=== PATIENT | male | born 1990 | race Caucasian/White ===

== ENCOUNTER 2024-05-03 08:24 | Outpatient (REF) | payer OTHER, SELFPAY ==
--- NOTE | ~2024-05-03 | US_ITS ---
EXAMINATION: US ABDOMEN COMPLETE CLINICAL INFORMATION: Epigastric pain, abdominal pain. COMPARISON: None available. TECHNIQUE: Real-time imaging of the abdominal viscera. FINDINGS: PANCREAS: Limited visualization of pancreatic tail and head. Imaged portion of pancreatic body is unremarkable. ABDOMINAL AORTA: Limited visualization. INFERIOR VENA CAVA: Visualized portions are normal. LIVER: Increased hepatic parenchymal heterogeneity and echogenicity could be associated with hepatocellular disease/hepatic steatosis and substantially limits visualization. Correlation with liver function tests and clinical exam recommended to determine further management. GALLBLADDER: No gallstones. No gallbladder wall thickening. COMMON BILE DUCT: Normal in caliber measuring 0.23 cm in diameter. RIGHT KIDNEY: No hydronephrosis. No renal calculi. Limited visualization. The kidney measures 10.5 cm in maximum dimension. LEFT KIDNEY: No hydronephrosis. No renal calculi. Limited visualization. The kidney measures 10.3 cm in maximum dimension. SPLEEN: Normal. The spleen measures 10.1 cm in maximum dimension. FREE FLUID: None. US/US abdomen complete IMPRESSION: Increased hepatic parenchymal heterogeneity and echogenicity could be associated with hepatocellular disease/hepatic steatosis and substantially limits visualization. Correlation with liver function tests and clinical exam recommended to determine further management. Electronically signed by: Annita Grady MD 05/08/2024 01:38 PM EDT
== END 2024-05-03 08:25 | disposition home or self-care (01) ==
LOC: HO.US 08:24
PROVIDERS: PCP Internal Medicine; Visit Provider Internal Medicine
DX: R10.13 Epigastric pain (principal)
CPT/HCPCS: 76700

== ENCOUNTER 2024-08-17 07:04 | Day surgery (SDC) | payer OTHER, SELFPAY ==
[2024-08-14 14:50] VITALS: BMI 25.0
--- NOTE | 2024-08-16 09:53 | P.CONAN_ITS ---
Documented by User: Anita Mendosa NP 08/16/24 09:54 HPI - Anesthesia Eval Consult details Narrative: 34yo M for Upper Endoscopy [facility] Past Medical History Medical History GERD (gastroesophageal reflux disease) Surgical History Surgical History No pertinent past surgical history Social History Social History Patient Tobacco Use Status: Never used Tobacco Use of substances other than those prescribed or required for medical reasons: Yes Substance Use Type Other:: 2-3x wk; last smoked 08/16/24 Advance Directives: No Advance Directives Information Provided: Yes Meds Allergies Allergy/AdvReac Type Severity Reaction Status Date / Time No Known Allergies Allergy Verified 08/14/24 14:49 Home Medications ?Medication ?Instructions ?Recorded ?Confirmed ?Last Taken ?Type omeprazole 20 mg capsule,delayed 20 mg PO DAILY 08/14/24 08/14/24 Unknown History release Exam Height,Weight and Vital Signs: Height 5 ft 7 in Weight 72.348 kg Assessment and Plan Assessment Anesthesia Assessment: Chart Reviewed Documented by User: Elizabeth Winter MD 08/17/24 08:10 [facility] Past Medical History Medical History GERD (gastroesophageal reflux disease) Family History Family history of problems with anesthesia: No Surgical History Surgical History No pertinent past surgical history History of Problems with Anesthesia: No Social History Social History Patient Tobacco Use Status: Never used Tobacco Use of substances other than those prescribed or required for medical reasons: Yes Substance Use Type Other:: 2-3x wk; last smoked 08/16/24 Advance Directives: No Advance Directives Information Provided: Yes Meds Allergies Allergy/AdvReac Type Severity Reaction Status Date / Time No Known Allergies Allergy Verified 08/14/24 14:49 Home Medications ?Medication ?Instructions ?Recorded ?Confirmed ?Last Taken ?Type omeprazole 20 mg capsule,delayed 20 mg PO DAILY 08/14/24 08/14/24 Unknown History release Exam Airway Mallampati Class: II TM Dist: >3cm Neck ROM: Full Heart: rrr Lungs: cta Assessment and Plan Assessment Anesthesia Assessment: Anesthesia Plan Discussed Final Anesthetic Review Family History of Problems with Anesthesia: No History of Problems with Anesthesia: No NPO: Yes ASA Class: II Final Preanesthetic Review: No Changes in Pt Med Stat, Meds/Allgs Chart Reviewed, Consent Obtained/Reviewed and Anes Risks/Benef Reviewed Patient Risk: Low Procedure Risk: Low Anesthetic Plan Anesthetic Plan: MAC: Disposition: Standard PACU
[2024-08-17 07:14] VITALS: BMI 25.1
[2024-08-17] MEDS: Lactated Ringers 1,000 ML 100 ML IVCONT (07:33)
[2024-08-17 08:17] VITALS: BP 91/61; PULSE 84; RESP 16; TEMP 36.5
--- NOTE | 2024-08-17 08:27 | P.BOP_ITS ---
Brief Operative Note Date of Service: 08/17/24 Pre-op diagnosis: GERD Post-op diagnosis: other (Erosive esophagitis, Hiatal hernia, Gastritis) Procedure: EGD with biopsies Surgeon: Landon Sharma MD Anesthesia: MAC Was an Public Stenographer used for this Procedure?: No Estimated blood loss (mL): 2.0 Pathology: other (A. Gastric antrum B. Esophagus 34-35cm) Condition: stable Disposition: PACU
[2024-08-17 08:36] VITALS: BP 106/72; PULSE 79; RESP 18; TEMP 36.1; O2SAT 94
--- NOTE | 2024-08-17 10:13 | OP_ITS ---
DATE OF SERVICE: 08/17/2024 SURGEON: Landon Sharma MD INDICATIONS: The patient presents for evaluation of gastroesophageal reflux. Full consent obtained from him for this, including risks of bleeding and perforation. PREOPERATIVE DIAGNOSIS: Gastroesophageal reflux. POSTOPERATIVE DIAGNOSIS: PROCEDURE PERFORMED: Esophagogastroduodenoscopy with biopsies. ESTIMATED BLOOD LOSS: COMPLICATIONS: ANESTHESIA: Medication used: Monitored anesthesia care. ASSISTANTS: SPECIMENS: POSTOPERATIVE DIAGNOSES: Gastroesophageal reflux, erosive esophagitis, hiatal hernia, gastritis. DESCRIPTION OF PROCEDURE: The patient was placed in the left lateral decubitus position. The Olympus video gastroscope was passed in the posterior oropharynx and upper esophagus under direct vision. The scope was passed slowlyto the distal esophagus. The gastroesophageal junction appeared at 35 cm. Extending to 34 cm where areas of erosive esophagitis with some ulcerations and surrounding edema. There was no definitive evidence of De La Vega's mucosa. There was no evidence of any mass, stricture, nor bleeding. The scope entered the stomach. There was a moderate-sized hiatal hernia with normal-appearing hiatal hernia mucosa. The scope was advanced to the pylorus and the duodenum was cannulated to the descending portion. The duodenum including the bulb appeared normal without mass or ulceration. The scope was withdrawn back to the stomach. The gastric antrum had areas of erythema and edema consistent with some gastritis but no erosions nor ulceration. Biopsies were obtained. There was good peristalsis. The scope was retroflexed visualizing the proximal stomach carefully, which appeared normal, without any sign of mass or ulceration. The scope was straightened and withdrawn back to the esophagus. Multiple biopsies were obtained between 34 and 35 cm. Proximal to 34 cm, the esophageal mucosa appeared normal. The scope was withdrawn from the patient. He tolerated the procedure well and was returned to recovery area in stable condition. IMPRESSION: 1. Erosive esophagitis. 2. Hiatal hernia. 3. Gastritis. PLAN: The results of the biopsies will be checked. He had been using omeprazole 20 mg daily up until the past couple of weeks. He did describe that helps his symptoms, although not completely. Based on today's findings, I am going to increase the omeprazole to 40 mg daily and I have advised him to continue that on a daily and regular basis. Given his young age, we may need to consider hiatal hernia surgery at some point. Given today's findings, I will most likely want to repeat anupper endoscopy in the next few months to assess for healing and to be sure there is no underlying De La Vega's esophagus. This will be arranged for him. He was advised to avoid all aspirin and NSAIDs long-term given today's findings as well. MD YOSEF Plunkett/JOHN / [id number] MTDD
== END 2024-08-17 08:55 | disposition home or self-care (01) ==
PROVIDERS: PCP Internal Medicine; Visit Provider Internal Medicine
PROC: 0DJ08ZZ Inspection of Upper Intestinal Tract, Via Natural or Artificial Opening Endoscopic (ICD-10-PCS; CPT 43235; principal; 2024-08-17 08:20)
DX: K22.10 Ulcer of esophagus without bleeding (principal); K29.60 Other gastritis without bleeding; K44.9 Diaphragmatic hernia without obstruction or gangrene; K21.9 Gastro-esophageal reflux disease without esophagitis; R12 Heartburn; Z79.899 Other long term (current) drug therapy
CPT/HCPCS: 43239; 88305; 88313; 88342; J1100; J1596; J2003; J2704

== ENCOUNTER 2024-11-24 19:13 | Emergency (ER) | payer OTHER, SELFPAY ==
--- NOTE | ~2024-11-24 | CT_ITS ---
CLINICAL HISTORY: worst headache of life vomiting CT head without contrast Comparison: None Findings: Cerebellar tonsils terminate at the foramen magnum. Prominence along the posterior superior sagittal sinus, with mildly dense intracranial vasculature may reflect contrast administration, otherwise is nonspecific. No acute intracranial hemorrhage, territorial infarction, midline shift or hydrocephalus. No significant atrophy-like change or white matter disease. Extensive opacification throughout the paranasal sinuses. No significant air-fluid levels or erosive changes. The orbits are within normal limits. There is no acute fracture. IMPRESSION: 1. No acute intracranial findings. This document has been electronically signed by: Roddy Salinas MD on 11/24/2024 20:09:20
--- NOTE | 2024-11-24 19:18 | ED_ITS ---
HPI - General Adult General Chief complaint: Headache Stated complaint: headaches,vomiting,high bp,sweating Time Seen by Provider: 11/24/24 21:24 Source: patient Mode of arrival: ambulatory Limitations: no limitations History of Present Illness ED Provider: HPI narrative: Patient has a migraine headache been having headache since yesterday with dizziness got worse today with nausea and vomiting patient feels slightly different than usual migraine headache blood pressure at home was 160 systolic no history of hypotension on arrival blood pressure was 135/87. Patient is photosensitive no neck pain no fever Related Data Home Medications ?Medication ?Instructions ?Recorded ?Confirmed omeprazole 20 mg capsule,delayed 20 mg PO DAILY 08/14/24 08/14/24 release Previous Rx's ?Medication ?Instructions ?Recorded chdseceopt-nndcergtwzwyj-dxpcmwqv 1 tab PO Q6H PRN haeadace #20 tabs 11/24/24 50 mg-325 mg-40 mg tablet ondansetron 4 mg disintegrating 4 mg PO Q6-8H PRN nausea and 11/24/24 tablet vomiting #7 tabs sumatriptan succinate 50 mg tablet 50 mg PO Q2H PRN migraine headache 11/24/24 (Imitrex) #10 tabs Allergies Allergy/AdvReac Type Severity Reaction Status Date / Time No Known Allergies Allergy Verified 11/24/24 19:28 Review of Systems 2 Review of Systems: Yes all other systems are reviewed and are negative [facility] Past Medical History Medical History GERD (gastroesophageal reflux disease) Surgical History No pertinent past surgical history Social History Social History Patient Tobacco Use Status: Never used Tobacco Smoked in Last 30 Days: No Use of substances other than those prescribed or required for medical reasons: No Advance Directives: No Advance Directives Information Provided: No Physical Exam ED Vital Signs: Vital Signs - 24 hr 11/24/24 19:26 11/24/24 19:54 11/24/24 21:45 Temperature 98.1 F 97.9 F Pulse Rate 79 62 71 Respiratory Rate 20 10 L 9 L Blood Pressure 135/87 119/78 99/70 Pulse Oximetry 100 100 100 Oxygen Delivery Method Room Air Room Air Room Air 11/24/24 22:12 11/24/24 23:09 Temperature 97.7 F Pulse Rate 63 57 Respiratory Rate 10 L 14 Blood Pressure 116/70 97/60 Pulse Oximetry 100 98 Oxygen Delivery Method Room Air Room Air BMI result Body Mass Index 24.3 Appearance: Alert. Oriented X3. Moderate headache Eyes: PERRLA, No Nystagmus photosensitive ENT: Pharynx normal. Oral Mucosa moist temporal artery nontender Neck: Normal inspection. Neck supple. CVS: Normal heart rate and rhythm. Pulses normal. Respiratory: No respiratory distress. Equal air entry bilateral, no wheezing/rales/rhonchi Abdomen: Soft and nontender. Bowel sounds are present, no mass palpable, no CVA tenderness Skin: Skin warm and dry. Normal skin color. Normal skin turgor. Extremities: No lower extremity edema. No calf tenderness Neuro: Oriented X 3. No motor deficit. No sensory deficit.No cerebellar signs , cranial nerves II-XII intact Course Course Course Narrative: This is a rapid medical exam performed by Vidhi Carranza NP: Additional HPI, ROS, PE not included below will be deferred to primary provider. 11/24/24 19:19 Patient is a 34-year-old male presenting with complaint of worst headache of my life, which started today, actively vomiting in triage. States he had to leave work early yesterday for lightheadedness/dizziness, and shortness of breath. Plan: wire charger notified and patient brought directly back to main ED, labs, viral panel, and CT head ordered. Medications Administered Discontinued Medications Generic Name Dose Route Start Last Admin Trade Name Freq PRN Reason Stop Dose Admin Sodium Chloride 1,000 mls @ 999 mls/hr 11/24/24 21:59 11/24/24 23:08 Ns IV 11/24/24 22:59 Infused .Q1H1M ONE Infusion Ketorolac Tromethamine 30 mg 11/24/24 21:59 11/24/24 22:06 Ketorolac Tromethamine 30 Mg/Ml Vial IVPUSH 11/24/24 22:00 30 mg ONCE ONE Administration Ondansetron HCl 4 mg 11/24/24 21:59 11/24/24 22:06 Ondansetron Hcl 4 Mg/2 Ml Vial IVPUSH 11/24/24 22:00 4 mg ONCE ONE Administration Sumatriptan Succinate 6 mg 11/24/24 21:59 11/24/24 22:07 Sumatriptan Succinate 6 Mg/0.5 Ml Vial SUBCUT 11/24/24 22:00 6 mg ONCE ONE Administration Medical Decision Making Medical Decision Making [facility] Narrative: Patient clinically with a migraine headache responded to Imitrex Toradol and nausea medication patient is feeling much better at this time will discharge patient home Differential Diagnosis Differential Diagnoses: The differential diagnosis associated with the presentation includes Migraine headache/sinusitis/subarachnoid bleed Lab Data [facility] Lab Attestation statement: I reviewed the patient's lab results. 11/24/24 19:32 11/24/24 19:32 Labs: Lab Results 11/24/24 Range/Units 19:32 WBC 10.9 H (4.8-10.8) X10*3/uL RBC 5.66 (4.60-5.80) X10*6/uL Hgb 17.1 (14.0-18.0) g/dl Hct 47.7 (42.0-52.0) % MCV 84.3 (80.0-98.0) fL MCH 30.2 (27.0-33.0) pg MCHC 35.8 (31.0-36.0) g/dl RDW 12.2 (11.0-16.0) % Plt Count 246 (160-400) X10*3/uL MPV 9.5 (9.4-12.4) fL Immature Gran % (Auto) 0.3 (0.0-0.4) % Neut % (Auto) 53.2 (45-73) % Lymph % (Auto) 36.2 (20-40) % Pendleton % (Auto) 4.8 (2-11) % Eos % (Auto) 5.0 H (0-4) % Baso % (Auto) 0.5 (0-2) % Lymph # (Auto) 4.0 (1.2-4.9) X10*3/uL [place] # (Auto) 0.5 (0.1-1.2) X10*3/uL Eos # (Auto) 0.6 H (0.0-0.4) X10*3/uL Baso # (Auto) 0.1 (0.0-0.2) X10*3/uL Abs Immat Gran (auto) 0.03 (0.00-0.03) X10*3/uL Absolute Neuts (auto) 5.8 (2.0-8.3) x10*3/uL Absolute Nucleated RBC 0.000 (0.0-0.012) X10*3/uL Nucleated RBC % (auto) 0.0 (0.0-0.2) /100WBC Sodium 143 (135-145) mmol/L Potassium 3.2 L (3.3-5.1) mmol/L Chloride 107 (96-108) mmol/L Carbon Dioxide 23 (22-29) mmol/L Anion Gap 16 (12-20) BUN 18 H (9-16) mg/dL Creatinine 1.09 (0.5-1.4) mg/dL Estim Creat Clear Calc 88.4 Estimated GFR > 60 Random Glucose 107 (60-115) mg/dL Calcium 9.3 (8.4-10.2) mg/dL Total Bilirubin 0.6 (0.0-1.0) mg/dL AST 30 (5-37) U/L ALT 48 H (0-40) U/L Alkaline Phosphatase 67 (39-117) U/L Total Protein 7.3 (6.5-8.0) g/dL Albumin 4.7 (3.5-5.0) g/dL Influenza Type A (PCR) NEGATIVE (Negative) Influenza Type B (PCR) NEGATIVE (Negative) RSV RNA Qual (PCR) NEGATIVE (Negative) SARS-CoV-2 RNA (RT-PCR) NEGATIVE (Negative) Radiology Impression Discussion of test interpretation with radiology: I have reviewed the radiologist's reading. Radiologist Impression: NAD Discharge Plan Discharge Clinical Impression: Migraine Patient Disposition: Home, Self-Care Instructions: Migraine Headache (ED) Additional Instructions: Drink plenty of fluids Take Imitrex 1 tablet at onset of headache may repeat in 2 hours if headache worsens maximum 2 tablets in 24 hours Fioricet 1 tablet every 6 hours as needed Medicine for nausea as prescribed Follow with your PCP Prescriptions: New sumatriptan succinate [Imitrex] 50 mg tablet 50 mg PO Q2H PRN (Reason: migraine headache) Qty: 10 0RF Rx Instructions: do not exceed 2 doses per 24 hrs ctzvcgzlqz-wsmreypabdwtc-ftaq 50-325-40 mg tablet 1 tab PO Q6H PRN (Reason: haeadace) Qty: 20 0RF ondansetron 4 mg tablet,disintegrating 4 mg PO Q6-8H PRN (Reason: nausea and vomiting) Qty: 7 0RF No Action omeprazole 20 mg capsule,delayed release(DR/EC) 20 mg PO DAILY Print Language: Amharic
[2024-11-24 19:26] VITALS: BP 135/87; PULSE 79; RESP 20; TEMP 36.7; O2SAT 100; BMI 24.3
[2024-11-24 19:35] LABS: MANUAL DIFF FLAG NO
[2024-11-24 19:37] LABS: Basophils Absolute Auto 0.1 X10*3/uL (0.0-0.2); Basophils Percent Auto 0.5 % (0-2); Eosinophils Absolute Auto 0.6 X10*3/uL (0.0-0.4); Hematocrit 47.7 % (42.0-52.0); Hemoglobin 17.1 g/dl (14.0-18.0); Imm Gran Abs Auto 0.03 X10*3/uL (0.00-0.03); Imm Gran Pct Auto 0.3 % (0.0-0.4); Lymphocytes Percent Auto 36.2 % (20-40); Mean Corpuscular HGB Conc 35.8 g/dl (31.0-36.0); Mean Corpuscular Hemoglobin 30.2 pg (27.0-33.0); Mean Corpuscular Volume 84.3 fL (80.0-98.0); Mean Platelet Volume 9.5 fL (9.4-12.4); Monocytes Absolute Auto 0.5 X10*3/uL (0.1-1.2); Monocytes Percent Auto 4.8 % (2-11); Neutrophils Absolute Auto 5.8 x10*3/uL (2.0-8.3); Neutrophils Percent Auto 53.2 % (45-73); Platelet Count 246 X10*3/uL (160-400); Red Blood Count 5.66 X10*6/uL (4.60-5.80); Red Cell Distribution Width 12.2 % (11.0-16.0); White Blood Count 10.9 X10*3/uL (4.8-10.8)
--- OUTSIDE RECORDS SUMMARY | 2024-11-24 19:46 | XMS_ITS | Patient Health Record ---
Author Organization [facility] Address [address] [place] [address] Care Team Providers Care Database Manager Name Role Phone Sherri Anderson Primary Care Provider Unavailab le Landon Sharma Unavailable [phone] Allergies No Known Allergies Results Component Value Reference Range Notes US abdomen complete Reviewed date:05/16/2024 08:29:33 AM Interpretation: Performing Lab: Notes/Report: [facility] [address] [place] [id number] Ultrasound Report Signed Patient: Andrew Wooten MR#: [id number] 215 : 1990 Acct:[id number] Age/Sex: 34 / M ADM Date: 05/03/24 Loc: HO.US Attending Dr: Landon Sharma MD Ordering Physician: Landon Sharma MD Date of Service: 05/03/24 Procedure(s): US abdomen complete Accession Number(s): [id number] cc: Sherri Anderson MD; Landon Sharma MD EXAMINATION: US ABDOMEN COMPLETE CLINICAL INFORMATION: Epigastric pain, abdominal pain. COMPARISON: None available. TECHNIQUE: Real-time imaging of the abdominal viscera. FINDINGS: PANCREAS: Limited visualization of pancreatic tail and head. Imaged portion of pancreatic body is unremarkable. ABDOMINAL AORTA: Limited visualization. INFERIOR VENA CAVA: Visualized portions are normal. LIVER: Increased hepatic parenchymal heterogeneity and echogenicity could be associated with hepatocellular disease/hepatic steatosis and substantially limits visualization. Correlation with liver function tests and clinical exam recommended to determine further management. GALLBLADDER: No gallstones. No gallbladder wall thickening. COMMON BILE DUCT: Normal in caliber measuring 0.23 cm in diameter. RIGHT KIDNEY: No hydronephrosis. No renal calculi. Limited visualization. The kidney measures 10.5 cm in maximum dimension. LEFT KIDNEY: No hydronephrosis. No renal calculi. Limited visualization. The kidney measures 10.3 cm in maximum dimension. SPLEEN: Normal. The spleen measures 10.1 cm in maximum dimension. FREE FLUID: None. US/US abdomen complete IMPRESSION: Increased hepatic parenchymal heterogeneity and echogenicity could be associated with hepatocellular disease/hepatic steatosis and substantially limits visualization. Correlation with liver function tests and clinical exam recommended to determine further management. Electronically signed by: Annita rGady MD 05/08/2024 01:38 PM EDT RP Dictated By: Annita Grady MD Signed By: <Electronically signed by Annita Grady MD in OV> 05/08/24 1338 DD/ 0830 TD/TT: 05/03/24 0850 [employer] Consultant: [place] [id number] Ultrasound Report Signed Patient: Yo Wooten MR#: [id number] 215 : 1990 Acct:[id number] Age/Sex: 34 / M ADM Date: 05/03/24 Loc: HO.US Attending Dr: Landon Sharma MD Ordering Physician: Landon Sharma MD Date of Service: 05/03/24 Procedure(s): US abd omen complete Accession Number(s): [id number] cc: Sherri Anderson MD; Landon Sharma MD EXAMINATION: US ABDOMEN COMPLETE CLINICAL INFORMATION: Epigastric pain, abdominal pain. COMPARISON: None available. TECHNIQUE: Real-time imaging of the abdominal viscera. FINDINGS: PANCREAS: Limited vi sualization of pancreatic tail and head. Imaged portion of pancreati c body is unremarkable. ABDOMINAL AORTA: Ortiz ited visualization. INFERIOR VENA CAVA: Visualized portions are normal. LIVER: Increased hep atic parenchymal heterogeneity and echogenicity could be associated with hepatocellular disease/hepatic steatosis and substantially limits visualization. Correlation with liver function tests and clinical e xam recommended to determine further management. GALLBLADDER: No gall stones. No gallbladder wall thickening. COMMON BILE DUCT: No rmal in caliber measuring 0.23 cm in diameter. RIGHT KIDNEY: No hyd ronephrosis. No renal calculi. Limited visualization. The k idney measures 10.5 cm in maximum dimension. LEFT KIDNEY: No hydr onephrosis. No renal calculi. Limited visualization. The k idney measures 10.3 cm in maximum dimension. SPLEEN: Normal. The spleen measures 10.1 cm in maximum dimension. FREE FLUID: None. U S/US abdomen complete IMPRESSION: Increased hepatic pa renchymal heterogeneity and echogenicity could be associated with hepa tocellular disease/hepatic steatosis and substantially limits visualization. Correlation with liver function tests and clinical e xam recommended to determine further management. Electronically antonio d by: Annita Grady MD 05/08/2024 01:38 PM EDT RP Dictated By: Annita Grady MD Signed By: <Davina morales signed by Annita Grady MD in OV> 05/08/24 1338 DD/ 0830 TD/TT: 05/03/24 0850 [employer] Consultant: Pathology (Not yet reviewed by provider) Interpretation: Performing Lab:[facility], [address] [place] [phone] Notes/Report: Name: Kim Wooten Age/Sex: 34/M : 1990 Unit#: [id number] Attend Dr: Landon Sharma MD Re08/17/24 Status : [facility] Location: [facility] Disch: SPEC : [id number] RECD: 08/17/24 STATUS: JODI OBRIEN NUM: [id number] JUAN JOSE: 08/17/24 [facility] DR: Landon Sharma MD ENTERED: 08/17/24 56 SP TYPE: Surgical OTHR DR: Sherri Anderson MD ORDERED: HE Stain/6, Gross Micro L4/2, IHC, Special st. 2, H. pylori, AB/PAS Addendum Addendum 1 Entered: 08/23/24 Immunostain for H. p ylori on A is negative. Additional level with AB/PAS on B is negative for intestinal metap lasia. Controls stain appropriately. Addendum Signed ____ __(signature on file) Tiny Jenna 08/23/24901 Diagnosis A. Gastric antrum, b iopsy: Gastric antral mucosa with reactive changes, focal ectatic vessels, and focal m inimal chronic inactive inflammation; negative for intestinal metaplasia and dysplasia. B. Esophagus, at 34- 35 cm, biopsy: Squamous mucosa with active erosive esophagitis with intraepithelial neut rophils and eosinophils (up to 10 per high-power field) and columnar mucosa with moderate chronic active inflammation; no intestinal metaplasia identified on initial levels; nega tive for dysplasia. Comment: (A): Immunostain for H. pylori pending; addendum to follow. (B): Additional leve l with AB/PAS stain pending; addendum to follow. Clinical History Pre-Op Dx: Epigastri c pain, heartburn, GERD Post-Op Dx: Erosive esophagitis, hiatal hernia, gastritis Microscopic Description Microscopic sections reviewed. Material Received A. Gastric antrum B. Esophagus 34-35 cm CONTINUED ON NEXT PAGE Name: Kim Wooten Age/Sex: 34/M : 1990 Unit#: [id number] Attend Dr: Landon Sharma MD Re08/17/24 Status : [facility] Location: [facility] Disch: SPEC : [id number] RECD: 08/17/24 STATUS: JODI OBRIEN NUM: [id number] JUAN JOSE: 08/17/[address] [facility] [address]: Landon Sharma MD ENTERED: 08/17/24 56 SP TYPE: Surgical OTHR DR: Sherri Anderson MD ORDERED: HE Stain/6, Gross Micro L4/2, IHC, Special st. 2, H. pylori, AB/PAS Gross Description Received in 2 parts. A. Received in forma surjit labeled ?gastric antrum? are 3 fragments of shabazz-white soft tissue measuring 0.2-0.4 cm in greatest dimension which are wrapped in lens paper and entirely submitted for micros copic examination, 3 pieces in cassette A. B. Received in forma surjit labeled ?esophagus 34-35 cm? are 4 fragments of translucent, white soft tissue measurin g 0.2-0.3 cm in greatest dimension which are wrapped in lens paper and entirely submitted f or microscopic examination, 4 pieces in cassette [address]. [facility] Special studies orde red and performed: Immunostain for H. pylori on A1; AB/PAS stains on B1. Copies To: Sherri Anderson MD [facility] [address] [place] [address] [place] [id number] Landon Sharma MD [facility] [address] [place] [address] [address] [place] [address] Signed (si gnature on file) Tiny Jenna 08/20/24 1532 END OF REPORT Reason For Referral No Information Medications Medication SIG (Take, Route, Fr equency, Duration) Notes Start Date End Date Status Omeprazole 40 MG 1 capsule 1/2 to 1 h our before morning meal Orally Once a day every morning for 30 day(s) 08/18/2024 Acti ve Tums 500 MG 1 tablet Orally Once a day for 30 day(s) 04/27/2024 Active Omeprazole 20 MG 1 Orally Once a day for 30 day(s) 04/27/2024 Active Omeprazole 20 MG 1 Orally Once a day for 90 days 0 04/27/2024 Active Immunizations Vaccine Route Administration Date Status Comme nts Influenza Unknown 07/05/2023 Administered Social History Tobacco Use: Social History Observation Description Date Details (start date - stop date) Never Smoker NA - NA Tobacco Use/Smoking Question Answer Notes Patient is a nonsmoker Alcohol Screen Question Answer Notes Did you have a drink contain ing alcohol in the past year? Yes How often did you have a dri nk containing alcohol in the past year? 2 to 3 times a week (3 points) How many drinks did you have on a typical day when you were drinking in the past year? 1 or 2 drinks (0 point) How often did you have 6 or more drinks on one occasion in the past year? Never (0 point) Points 3 Interpretation Negative Section Notes: Nonsmoker; occ alcohol 1 to 2 coffees daily Problems Problem Type SNOMED Code ICD Code Onset Dates Problem Status W/U Status Risk Notes Problem Gastro-esophageal reflux disease without esophagitis (965874351) Gastro-esophag eal reflux disease without esophagitis (K21.9) Active confirmed Problem Heartburn (49402662) Heartburn (R12) Active confirmed Problem Epigastric pain (23977246) Abdominal pain, epigastric (R10.13) Active confirmed Problem Erosive esophagitis (97286153) Erosive esophagitis (K22.10) Active confirmed Problem Chronic gastritis (6226443) Chronic gastritis (K29.50) Active confirmed Problem Gastroesophageal reflux disease (disorder) (319684636) Chronic GERD (K21.9) Active confirmed Vital Signs Temperature 97.8 degrees Fahrenheit 04/27/2024 Blood pressure diastolic 00 mm Hg 04/27/2024 Height 5 ft 7 in in 04/27/2024 Blood pressure systolic 000 mm Hg 04/27/2024 Weight 159 lb 8 oz lbs 04/27/2024 BMI 24.98 kg/m2 04/27/2024 Encounters Encounter Location Date Provider Diagnosis [facility] Outpatient [address] [place] [id number] 08/17/2024 Landon Sharma Hiatal hernia K44.9 ; Gastro-esophageal reflux disease without esophagitis K21.9 ; Erosive esophagitis K22.10 and Chronic gastritis K29.50 [facility] [address] [place] [phone] 04/27/2024 Landon Sharma Chronic GERD K21.9 ; Heartburn R12 and Abdominal pain, epigastric R10.13 [facility] [address] [place] [phone] 08/18/2024 Landon Sharma Assessments Encounter Date Diagnosis (ICD Code) Assessment Notes Treatment Notes Treatment Clinical Notes Section Notes 08/17/2024 Gastro-esophage al reflux disease without esophagitis (ICD-10 - K21.9) 08/17/2024 Hiatal hernia (ICD-10 - K44.9) 04/27/2024 Heartburn (ICD-10 - R12) Overall, Jesus Manuel appears quite well. We did review his long-standing history of his upper GI complaints. We did review that he does not really having any particular habits such as smoking or significant caffeine use that would predispose to persistent heartburn and reflux symptoms. We did review that he may very well have a hiatal hernia contributing to his ongoing reflux. I did recommend an upper endoscopy for definitive evaluation to assess for any component of significant esophagitis, De La Vega's esophagus, and/or a hiatal hernia. The procedure will be done monitored anesthesia care. Full consent is obtained for this, including risks of bleeding and perforation. In the meantime, I did advise him that he should use 2 or 3 TUMS every night at bedtime to try to prevent some nocturnal heartburn. I have also given him a prescription to use omeprazole 20 mg daily on a long-term basis until we do the procedure. I shall also schedule him for an abdominal ultrasound to rule out symptomatic gallstones that might be contributing to the upper abdominal discomfort and upper GI symptoms in general. Jesus Manuel was comfortable with this plan. Thank you again for allowing me to participate in Jesus Manuel's care. I shall continue to keep you advised of his progress. 04/27/2024 Chronic GERD (ICD-10 - K21.9) Take 3 TUMS before bedtime Don't eat or drink for 3 hours before bedtime Continue omeprazole daily Overall, Jesus Manuel appears quite well. We did review his long-standing history of his upper GI complaints. We did review that he does not really having any particular habits such as smoking or significant caffeine use that would predispose to persistent heartburn and reflux symptoms. We did review that he may very well have a hiatal hernia contributing to his ongoing reflux. I did recommend an upper endoscopy for definitive evaluation to assess for any component of significant esophagitis, De La Vega's esophagus, and/or a hiatal hernia. The procedure will be done monitored anesthesia care. Full consent is obtained for this, including risks of bleeding and perforation. In the meantime, I did advise him that he should use 2 or 3 TUMS every night at bedtime to try to prevent some nocturnal heartburn. I have also given him a prescription to use omeprazole 20 mg daily on a long-term basis until we do the procedure. I shall also schedule him for an abdominal ultrasound to rule out symptomatic gallstones that might be contributing to the upper abdominal discomfort and upper GI symptoms in general. Jesus Manuel was comfortable with this plan. Thank you again for allowing me to participate in Jesus Manuel's care. I shall continue to keep you advised of his progress. 08/17/2024 Erosive esophagitis (ICD-10 - K22.10) 04/27/2024 Abdominal pain, epigastric (ICD-10 - R10.13) Overall, Jesus Manuel appears quite well. We did review his long-standing history of his upper GI complaints. We did review that he does not really having any particular habits such as smoking or significant caffeine use that would predispose to persistent heartburn and reflux symptoms. We did review that he may very well have a hiatal hernia contributing to his ongoing reflux. I did recommend an upper endoscopy for definitive evaluation to assess for any component of significant esophagitis, De La Vega's esophagus, and/or a hiatal hernia. The procedure will be done monitored anesthesia care. Full consent is obtained for this, including risks of bleeding and perforation. In the meantime, I did advise him that he should use 2 or 3 TUMS every night at bedtime to try to prevent some nocturnal heartburn. I have also given him a prescription to use omeprazole 20 mg daily on a long-term basis until we do the procedure. I shall also schedule him for an abdominal ultrasound to rule out symptomatic gallstones that might be contributing to the upper abdominal discomfort and upper GI symptoms in general. Jesus Manuel was comfortable with this plan. Thank you again for allowing me to participate in Jesus Manuel's care. I shall continue to keep you advised of his progress. 08/17/2024 Chronic gastritis (ICD-10 - K29.50) Plan Of Treatment Pending Test Test Name Order Date US ABD 04/27/2024 Pathology 08/17/2024 Future Test Test Name Order Date UPPER GI ENDOSCOPY 04/27/2024 Insurance Providers Payer Name Payer Address Payer Phone Subscriber Number Group Number Insured Name Patient Relationship to Insured Coverage Start Date Coverage End Date [facility] [place] [address] [place]M [place] [id number] ANDREW WOOTEN Self - patient is the insured Medical (General) History Medical History History ICD Code Denies [place],DM,CVA,Lung disease,renal dise ase GERD/heartburn Surgical History Surgery Date(Month/Year)
--- OUTSIDE RECORDS SUMMARY | 2024-11-24 19:46 | XMS_ITS ---
Author Organization [facility] Address [address] [place] [address] Care Team Providers Care Finisher Accordion Name Role Phone Sherri Anderson Primary Care Provider Unavailab Landon Agee Unavailable [phone] REASON FOR VISIT 40mg omeprazole Rx Medications Medication SIG (Take, Route, Fr equency, Duration) Notes Start Date End Date Status Omeprazole 40 MG 1 capsule 1/2 to 1 h our before morning meal Orally Once a day every morning for 30 day(s) 08/18/2024 Acti ve Encounters Encounter Location Date Provider Diagnosis [facility] [address] [place] [phone] 08/18/2024 Landon Sharma Plan Of Treatment Medication Medication Name Sig Start Date Stop Date Notes Omeprazole 40 MG 1 capsule 1/2 to 1 h our before morning meal Orally Once a day every morning for 30 day(s) 08/18/2024 Progress Notes * ANDREW WOOTENDOB:[birth year] (34 yo M)Acc No.[id number]:08/18/2024 Patient:?ANDREW WOOTEN :1990???Age:34 Y???Sex:Male Address:[address] [place] [address], [address] * Refills? Start Omeprazole Capsule Delayed Release, 40 MG, Orally, 30, 1 capsule 1/2 to 1 hour before morning meal, Once a day every morning, 30 day(s), Refills=6 * true * Date:? Generated for Pinedai tennille/Nichole/eTransmitting on:?11/24/2024 07:45 PM EDT
--- OUTSIDE RECORDS SUMMARY | 2024-11-24 19:46 | XMS_ITS ---
Author Organization [facility] Address [address] [place] [address] Care Team Providers Care Vp Information Technology Name Role Phone Sherri Anderson Primary Care Provider Unavailab Landon Agee Unavailable [phone] Allergies No Known Allergies REASON FOR VISIT Patient presents today for acid reflux Medications Medication SIG (Take, Route, Fr equency, Duration) Notes Start Date End Date Status Tums 500 MG 1 tablet Orally Once a day for 30 day(s) 04/27/2024 Active Omeprazole 20 MG 1 Orally Once a day for 30 day(s) 04/27/2024 Active Omeprazole 20 MG 1 Orally Once a day for 90 days 0 04/27/2024 Active Social History Tobacco Use: Social History Observation [...] Problem Status W/U Status Risk Notes Problem Gastroesophageal reflux disease (disorder) (407696409) Chronic GERD (K21.9) Active confirmed Problem Heartburn (61491052) Heartburn (R12) Active confirmed Problem Epigastric pain (77027023) Abdominal pain, epigastric (R10.13) Active confirmed Vital Signs Temperature 97.8 degrees Fahrenheit 04/27/20 24 Blood pressure systolic 000 mm Hg 04/27/20 24 Blood pressure diastolic 00 mm Hg 024 Height 5 ft 7 in in 04/27/2024 Weight 159 lb 8 oz lbs 04/27/2024 BMI 24.98 kg/m2 04/27/2024 Encounters Encounter Location Date Provider Diagnosis [facility] [address] [place] [address] 04/27/2024 Landon Sharma Chronic GERD K21.9 ; Heartburn R12 and Abdominal pain, epigastric R10.13 Assessments Encounter Date Diagnosis (ICD Code) Assessment Notes Treatment Notes Treatment Clinical Notes Section Notes 04/27/2024 Chronic GERD (ICD-10 - K21.9) Take [...] keep you advised of his progress. 04/27/2024 Heartburn (ICD-10 - R12) Overall, Jesus [...] keep you advised of his progress. 04/27/2024 Abdominal pain, epigastric (ICD-10 - R10.13) [...] to keep you advised of his progress. Plan Of Treatment Medication Medication Name Sig Start Date Stop Date Notes Omeprazole 20 MG 1 Orally Once a day for 30 day(s) 024 Omeprazole 20 MG 1 Orally Once a day for 90 days Treatment Notes Assessment Notes Chronic GERD Take 3 TUMS before bedtime Don't eat or drink for 3 hours before bedtime Continue omeprazole daily Pending Test Test Name Order Date US ABD 04/27/2024 Future Test Test Name Order Date UPPER GI ENDOSCOPY 04/27/2024 Next Appt Details Follow Up: prn, Reason: Progress Notes * ANDREW WOOTENDOB:[birth year] (34 yo M)Acc No.[id number]:04/27/2024 Progress Notes Patient:?ANDREW WOOTEN Provider:?Landon Sharma MD :1990???Age:34 Y???Sex:Male Cruz e:04/27/2024 Address:[address] [place] [address] Pcp:Sherri Anderson Subjective: * Chief Complaints: * ???Patient presents today fo r acid reflux * HPI: ???incontinence:? I saw Jesus Manuel in consultation today in regard to further evaluation of his chronic gastroesophageal reflux, heartburn, and epigastric discomfort. ?As you know, Jseus Manuel is a healthy 34-year-old male who generally feels well. However, he describes at least 10 years of heartburn with a progression of increasing frequency of his symptoms both during the day and overnight. He describes associated epigastric discomfort which is then usually followed by the burning and reflux symptoms. He primarily uses TUMS with transient relief. He has used courses of lxhm-wrm-jqwfxwg PPIs over the years which will give him some relief but as soon as he stops then his symptoms will come back. He has not used PPIs for at least a year or so. He describes some increasing coughing. ?He enjoys a good appetite and denies any dysphagia, early satiety, nausea, nor vomiting. He denies any signs of jaundice nor unintentional weight loss. He reports his bowel movements have been regular and without any signs of bleeding. He denies any known family history of colon cancer nor esophageal disease. ?He is having one or 2 cups of coffee per day but does not smoke, use any significant alcohol, nor eat for at least 3 hours before bedtime. ?He has never had an upper endoscopy nor any imaging studies of his GI tract or abdomen. * ROS:?General/Constitutional:?Change in appetite?denies.?Chills?denies.?Fatigue?denies.?Ophthalmologic:?Comments?all negative.?ENT:?Comments?all negative.?Respiratory:?hemoptysis?denies.?Cough?denies.?Cardiovascular:?Chest pain?denies.?Orthopnea?denies.?Gastrointestinal:?Comments?See HPI for details.?Genitourinary:?Hematuria?denies.?Dysuria?denies.?Musculoskeletal:?Painful joints?denies.?Weakness?denies.?Skin:?Itching?denies.?Rash?denies.?Neurologic:?Headache?denies.?Seizures?denies.?Psychiatric:?Comments?all negative.? * Medical History:? * Surgical History:?No Surgica l History documented. * Hospitalization/Major Diagno stic Procedure:?No Hospitalization History. * Family History:?Father: supriya schmitz?Mother: alive.? No family history of colon cancer or liver cancer. * Social History:?Tobacco Use:?Tobacco Use/Smoking?Patient is a?nonsmoker.?Drugs/Alcohol:?Alcohol Screen?Did you have a drink containing alcohol in the past year??Yes,?How often did you have a drink containing alcohol in the past year??2 to 3 times a week (3 points),?How many drinks did you have on a typical day when you were drinking in the past year??1 or 2 drinks (0 point),?How often did you have 6 or more drinks on one occasion in the past year??Never (0 point),?Points?3,?Interpretation?Negative.?Miscellaneous:?Marital status: single. 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 ???Nonsmoker; occ alcohol 1 to 2 coffees daily. * Medications:?TakingTums 500 MG Tablet Chewable 1 tablet Orally Once a dayMedication List reviewed and reconciled with the patientTaking Tums 500 MG Tablet Chewable 1 tablet Orally Once a dayMedication List reviewed and reconciled with the patient * Allergies:?N.K.D.A.yes[Aller gies Verified] Objective: * Vitals:?Wt: 159 lb 8 oz, Ht: 5 ft 7 in, BMI:24.98 Index, BP: 000/00 mm Hg, Temp: 97.8. * Examination: ???General Examination: ?GENERAL APPEARANCE:?pleasant, well nourished, well developed, in no acute distress.?EYES:?sclera non-icteric.?ORAL CAVITY:?mucosa moist.?NECK/THYROID:?no cervical lymphadenopathy, neck supple.?SKIN:?nonjaundiced, no spider angiomata.?HEART:?S1, S2 normal.?LUNGS:?clear to auscultation bilaterally.?ABDOMEN:?normal bowel sounds, no guarding or rigidity, no guarding or rigidity, no masses palpable, soft, nontender, nondistended.?EXTREMITIES:?no edema.?NEUROLOGIC:?alert and oriented.? Assessment: * Assessment: 1.?Chronic GERD - K21.9 (Annabella alistair)?2.?Heartburn - R12?3.?Abdominal pain, epigastric - R10.13? Overall, Jesus Manuel appears quite well. We [...] to keep you advised of his progress. Plan: * Treatment: Notes: Take 3 TUMS before bedtime Don't eat or drink for 3 hours before bedtime Continue omeprazole daily??2.?Heartburn?Procedure: UPPER GI ENDOSCOPY (Ordered for 04/27/2024)* with MACsched for 08/17/24 at 11:20 am 3.?Abdominal pain, epigastric?Imaging: US ABD* [facility] Ultrasound ept 2nd floor fasting for hrs priorsched for 05/03/24 at 8:30 am * ?Procedure: UPPER GI ENDOSCOPY (Ordered for 04/27/2024)* with MACsched for 08/17/24 at 11:20 am 4.?Others? Start Omeprazole Capsule Delayed Release, 20 MG, 1, Orally, Once a day, 30 day(s), 30, Refills 11. ? * Procedure Codes:?1036F TOBAC CO NON-VSQPD1661 BP SCR NOT PRFRM REC REASON NOS * Follow Up:?prn * * Sign off status: Completed true * Provider:?Landon Sharma MD Date:? 024 Generated for Sheila null/Nichole/eTransmitting on:?11/24/2024 07:45 PM EDT History and Physical Notes * HPI (History of Present Illness) Category Sub-Category Detail Notes Category Not es incontinence I saw Jesus Manuel in consultation today in regard to further evaluation of his chronic gastroesophageal reflux, heartburn, and epigastric discomfort. As you know, Jesus Manuel is a healthy 34-year-old male who generally feels well. However, he describes at least 10 years of heartburn with a progression of increasing frequency of his symptoms both during the day and overnight. He describes associated epigastric discomfort which is then usually followed by the burning and reflux symptoms. He primarily uses TUMS with transient relief. He has used courses of mzoz-xpd-sruwsto PPIs over the years which will give him some relief but as soon as he stops then his symptoms will come back. He has not used PPIs for at least a year or so. He describes some increasing coughing. He enjoys a good appetite and denies any dysphagia, early satiety, nausea, nor vomiting. He denies any signs of jaundice nor unintentional weight loss. He reports his bowel movements have been regular and without any signs of bleeding. He denies any known family history of colon cancer nor esophageal disease. He is having one or 2 cups of coffee per day but does not smoke, use any significant alcohol, nor eat for at least 3 hours before bedtime. He has never had an upper endoscopy nor any imaging studies of his GI tract or abdomen. Examination Category Sub-Category Detail Notes Category Not es General Examination GENERAL APPEARANCE: pleasant , well nourished, well developed, in no acute distress HEAD: EYES: sclera non-icteric EARS: NOSE: THROAT: NECK/THYROID: no cervical lymphade nopathy, neck supple HEART: S1, S2 normal CHEST: LUNGS: clear to auscultatio n bilaterally ABDOMEN: normal bowel sounds, no guarding or rigidity, no guarding or rigidity, no masses palpable, soft, nontender, nondistended NEUROLOGIC: alert and oriented SKIN: nonjaundiced, no spi lisa angiomata EXTREMITIES: no edema PERIPHERAL PULSES: BACK: BREASTS: MUSCULOSKELETAL: MALE GENITOURINARY: LYMPH NODES: RECTAL EXAM: FEMALE GENITOURINARY: ORAL CAVITY: mucosa moist
[2024-11-24 19:50] LABS: Alanine Aminotransferase 48 U/L (0-40); Albumin Level 4.7 g/dL (3.5-5.0); Alkaline Phosphatase 67 U/L (39-117); Anion Gap 16 (12-20); Aspartate Amino Transferase 30 U/L (5-37); Bilirubin Total 0.6 mg/dL (0.0-1.0); Blood Urea Nitrogen 18 mg/dL (9-16); Calcium 9.3 mg/dL (8.4-10.2); Carbon Dioxide 23 mmol/L (22-29); Chloride 107 mmol/L (96-108); Creatinine Clr Calc Pharmacy 88.4; Estimated Glomerular Filt Rate > 60; Glucose Random 107 mg/dL (60-115); Potassium 3.2 mmol/L (3.3-5.1); Sodium 143 mmol/L (135-145); Total Protein 7.3 g/dL (6.5-8.0)
[2024-11-24 19:54] VITALS: BP 119/78; PULSE 62; RESP 10; TEMP 36.6; O2SAT 100
[2024-11-24 20:13] LABS: Influenza A PCR NEGATIVE (Negative); Influenza B PCR NEGATIVE (Negative); Resp Syncy Virus RNA Qual PCR NEGATIVE (Negative); SARS COV2 PCR INHOUSE NEGATIVE (Negative)
[2024-11-24 21:45] VITALS: BP 99/70; PULSE 71; RESP 9; O2SAT 100
[2024-11-24] MEDS: 0.9 % Sodium Chloride 1,000 ML 999 ML IV (22:04)
[2024-11-24] MEDS: Ketorolac Tromethamine 30 MG/ML VIAL IVPUSH (22:06)
[2024-11-24] MEDS: ondansetron HCL 4 MG/2 ML VIAL IVPUSH (22:06)
[2024-11-24] MEDS: SUMAtriptan succinate 6 MG/0.5 ML VIAL SUBCUT (22:07)
[2024-11-24 22:12] VITALS: BP 116/70; PULSE 63; RESP 10; TEMP 36.5; O2SAT 100
[2024-11-24 23:09] VITALS: BP 97/60; PULSE 57; RESP 14; O2SAT 98
[2024-11-25 00:01] VITALS: BP 97/67; PULSE 54; RESP 14; TEMP 36.1; O2SAT 98
[2024-11-25 00:09] VITALS: BP 97/67; PULSE 54; RESP 14; TEMP 36.1; O2SAT 98
== END 2024-11-25 00:21 | disposition home or self-care (01) ==
PROVIDERS: Registered Nurse Emergency; Emergency Provider Internal Medicine; PCP Internal Medicine
DX: G43.909 Migraine, unspecified, not intractable, without status migrainosus (principal); R11.2 Nausea with vomiting, unspecified; Z03.818 Encounter for observation for suspected exposure to other biological agents ruled out; Z79.899 Other long term (current) drug therapy
CPT/HCPCS: 0241U; 70450; 80053; 85025; 96361; 96374; 96375; 99284; J1885; J2405; J3030

== ENCOUNTER → 2024-11-24 19:20 | Outpatient (BNV) | payer OTHER, SELFPAY | PROVIDERS: PCP Internal Medicine; Visit Provider Radiology Diagnostic Radiology | DX: R51.9 Headache, unspecified (principal); R11.10 Vomiting, unspecified | CPT/HCPCS: 70450 ==

== ENCOUNTER 2024-12-17 10:59 | Outpatient (REF) | payer OTHER, SELFPAY ==
--- OUTSIDE RECORDS SUMMARY | 2024-12-17 12:41 | XMS_ITS ---
Author Organization [facility] Address [address] [place] [address] Care Team Providers Care Fountain Helper Name Role Phone Sherri Anderson Primary Care Provider Unavailab Landon Agee Unavailable [phone] Allergies No Known Allergies REASON FOR VISIT [...] Risk Notes Problem Gastroesophageal reflux disease (disorder) (150902082) Chronic GERD (K21.9) Active confirmed Problem Heartburn (44568034) Heartburn (R12) Active confirmed Problem Epigastric pain (84902459) Abdominal pain, epigastric (R10.13) Active confirmed Vital Signs Temperature 97.8 degrees Fahrenheit 04/27/20 24 Blood pressure systolic 000 mm Hg 04/27/20 24 Blood pressure diastolic 00 mm Hg 024 Height 5 ft 7 in in 04/27/2024 Weight 159 lb 8 oz lbs 04/27/2024 BMI 24.98 kg/m2 04/27/2024 Encounters Encounter Location Date Provider Diagnosis [facility] [address] [place] [address] 04/27/2024 Landon Sharma Chronic GERD K21.9 ; [...] * ANDREW WOOTENDOB:[birth year] (34 yo M)Acc No.[id number]:04/27/2024 Progress Notes Patient:?ANDREW WOOTEN Provider:?Landon Sharma MD :1990???Age:34 Y???Sex:Male Cruz e:04/27/2024 Address:[address] [place] [address] Pcp:Sherri Anderson Subjective: * Chief Complaints: * ???Patient presents today fo r acid reflux * HPI: ???incontinence:? I saw Jesus Manuel in consultation today in regard to further evaluation of his chronic gastroesophageal reflux, heartburn, and epigastric discomfort. ?As you know, Jesus Manuel is a healthy [...] transient relief. 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. ???Nonsmoker; occ alcohol [...] 11:20 am 3.?Abdominal pain, epigastric?Imaging: US ABD* [facility] Ultrasound ept 2nd floor fasting for hrs priorsched for 05/03/24 at 8:30 am * ?Procedure: UPPER GI ENDOSCOPY (Ordered for 04/27/2024)* with MACsched for 08/17/24 at 11:20 am 4.?Others? Start Omeprazole Capsule Delayed Release, 20 MG, 1, Orally, Once a day, 30 day(s), 30, Refills 11. ? * Procedure Codes:?1036F TOBAC CO [id number] BP SCR NOT PRFRM REC REASON NOS * Follow Up:?prn * * Sign off status: Completed true * Provider:?Landon Sharma MD Date:? 024 Generated for Sheila null/Nichole/eTransmitting on:?12/17/2024 12:41 PM EDT History and Physical Notes * [...] transient relief. He has used courses of cune-eex-uugwlzp PPIs over the years which will give [...]
--- OUTSIDE RECORDS SUMMARY | 2024-12-17 12:41 | XMS_ITS | Patient Health Record ---
Author Organization [facility] Address [address] [place] [address] Care Team Providers Care Data Capture Clerk Name Role Phone Sherri Anderson Primary Care Provider Unavailab le Landon Sharma Unavailable [phone] Allergies No Known Allergies Results Component Value Reference Range Notes US abdomen complete Reviewed date:05/16/2024 08:29:33 AM Interpretation: Performing Lab: Notes/Report: [facility] [address] [place] [address] Ultrasound Report Signed Patient: Jackson Wooten MR#: [id number] : 1990 Acct:[id number] Age/Sex: 34 / M ADM Date: 05/03/24 Loc: HO.US Attending Dr: Landon Sharma MD Ordering Physician: Landon Sharma MD Date of Service: 05/03/24 Procedure(s): US abdomen complete Accession Number(s): [id number] cc: Sherri Anderson MD; Landon Sharma MD [...] determine further management. Electronically signed by: Annita Grady MD 05/08/2024 01:38 PM EDT RP Dictated By: Annita Grady MD Signed By: <Electronically signed by Annita Grady MD in OV> 05/08/24 1338 DD/ 0830 TD/TT: 05/03/24 0850 Bander [employer] Machine Helper: [place] [address] Ultrasound Report Signed Patient: Yo Wooten MR#: [id number] : 1990 Acct:[id number] Age/Sex: 34 / M ADM Date: 05/03/24 Loc: HO.US Attending Dr: Landon Sharma MD Ordering Physician: Landon Sharma MD Date of Service: 05/03/24 Procedure(s): US abd omen complete Accession Number(s): [id number] cc: Sherri Anderson MD; Landon Sharma MD [...] 05/08/24 1338 DD/ 0830 TD/TT: 05/03/24 0850 [employer] Machine Helper: Pathology (Not yet reviewed by provider) Interpretation: Performing Lab:[facility], [address] [place] [phone] Notes/Report: Name: Kim Wooten Age/Sex: 34/M : 1990 Unit#: [id number] Attend Dr: Landon Sharma MD Re08/17/24 Status : [facility] Location: [facility] Disch: SPEC : [id number] RECD: 08/17/24 STATUS: JODI OBRIEN NUM: [id number] JUAN JOSE: 08/17/[address] [facility] [address]: Landon Sharma MD ENTERED: 08/17/24 56 [...] Addendum Signed ____ __(signature on file) [place] 08/23/[address] Diagnosis A. Gastric antrum, b iopsy: [...] Kim Wooten Age/Sex: 34/M : 1990 Unit#: [id number] Attend Dr: Landon Sharma MD Re08/17/24 Status : [facility] Location: [facility] Disch: SPEC : [id number] RECD: 08/17/24 STATUS: JODI OBRIEN NUM: [id number] JUAN JOSE: 08/17/[address] [facility] [address]: Landon Sharma MD ENTERED: 08/17/24 56 [...] microscopic examination, 4 pieces in cassette [facility]. [facility] Special studies orde red and performed: Immunostain for H. pylori on A1; AB/PAS stains on B1. Copies To: Sherri Anderson MD [facility] [address] [place] [address] [place] [address] Landon Sharma MD [facility] [address] [place] [address] [address] [place] [address] Signed (si gnature on file) Tiny Jenna [...] Problem Gastro-esophagea l reflux disease without esophagitis (514858118) Gastro-esophage al reflux disease without esophagitis (K21.9) Active confirmed Problem Heartburn (42183826) Heartburn (R12) Active confirmed Problem Abdominal pain, epigastric (R10.13) Active confirmed Problem Erosive esophagitis (25257035) Erosive esophagitis (K22.10) Active confirmed Problem Chronic gastritis (5933230) Chronic gastritis (K29.50) Active confirmed Problem Chronic GERD (K21.9) Active confirmed Vital Signs Temperature 97.8 degrees Fahrenheit 04/27/2024 Blood pressure diastolic 00 mm Hg 04/27/2024 Height 5 ft 7 in in 04/27/2024 Blood pressure systolic 000 mm Hg 04/27/2024 Weight 159 lb 8 oz lbs 04/27/2024 BMI 24.98 kg/m2 04/27/2024 Encounters Encounter Location Date Provider Diagnosis [facility] [address] [place] [phone] 08/17/2024 Landon Sharma Hiatal hernia K44.9 ; Gastro-esophageal reflux disease without esophagitis K21.9 ; Erosive esophagitis K22.10 and Chronic gastritis K29.50 [facility] [address] [place] [phone] 04/27/2024 Landon Sharma Chronic GERD K21.9 ; Heartburn R12 and Abdominal pain, epigastric R10.13 [facility] [address] [place] [phone] 08/18/2024 Landon Sharma Assessments Encounter Date Diagnosis [...] Insured Coverage Start Date Coverage End Date [facility] [address] [place] [id number] JACKSON WOOTEN Self - patient is the insured Medical (General) History Medical History History ICD Code Denies ME,DM,CVA,Lung disease,renal dise ase GERD/heartburn Surgical History Surgery Date(Month/Year)
--- OUTSIDE RECORDS SUMMARY | 2024-12-17 12:41 | XMS_ITS ---
Author Organization [facility] Address [address] [place] [address] Care Team Providers Care Mechanical Developer Prover Name Role Phone Sherri Anderson Primary Care Provider Unavailab Landon Agee Unavailable [phone] REASON FOR VISIT gerd, epigastric pain, heartburn Problems Problem Type SNOMED Code ICD Code Onset Dates Problem Status W/U Status Risk Notes Problem Gastro-esophagea l reflux disease without esophagitis (126893431) Gastro-esophage al reflux disease without esophagitis (K21.9) Active confirmed Problem Erosive esophagitis (31205472) Erosive esophagitis (K22.10) Active confirmed Problem Chronic gastritis (4318433) Chronic gastritis (K29.50) Active confirmed Encounters Encounter Location Date Provider Diagnosis [facility] Out[place] [address] [place] [phone] 08/17/2024 Landon Sharma Hiatal hernia K44. 9 [...] Of Treatment No Information Progress Notes * ANDREW WOOTENDOB:[birth year] (34 yo M)Acc No.[id number]:08/17/2024 EGD/MAC Patient:?ANDREW WOOTEN Provider:?Landon Sharma MD :1990???Age:34 Y???Sex:Male Cruz e:08/17/2024 Address:[address] [place] [address] [facility] Pcp:Sherri Anderson Subjective: * Chief Complaints: * ???1. Gerd, epigastric pain, heartburn. * Medical History:? Objective: * Vitals:? Assessment: * Assessment: 1.?Hiatal hernia - K44.9 (Pr imary)???2.?Gastro-esophageal reflux disease without esophagitis - K21.9???3.?Erosive esophagitis - K22.10???4.?Chronic gastritis - K29.50??? Plan: * Treatment: * Procedure Codes:?46771 UPPER GI ENDOSCOPY, BIOPSY * * The named appointment provid er may or may not be the originator of this progress note, and it is not deemed complete until electronically signed by the appointment provider. Sign off status: Pending * Provider:?Landon Sharma MD Date:? 025 Generated for Sheila null/Nichole/eTransmitting on:?12/17/2024 12:41 PM EDT
--- OUTSIDE RECORDS SUMMARY | 2024-12-17 12:42 | XMS_ITS ---
Author Organization [facility] Address [address] [place] [phone] Care Team Providers Care Electric Truck Driver Name Role Phone Monica Sherri Primary Care Provider Unavailab Landon Agee Unavailable [phone] REASON FOR VISIT 40mg omeprazole Rx Medications Medication SIG (Take, Route, Fr equency, Duration) Notes Start Date End Date Status Omeprazole 40 MG 1 capsule 1/2 to 1 h our before morning meal Orally Once a day every morning for 30 day(s) 08/18/2024 Acti ve Encounters Encounter Location Date Provider Diagnosis [facility] [address] [place] [phone] 08/18/2024 Landon Sharma Plan Of Treatment Medication Medication Name Sig Start Date Stop Date Notes Omeprazole 40 MG 1 capsule 1/2 to 1 h our before morning meal Orally Once a day every morning for 30 day(s) 08/18/2024 Progress Notes * ANDREW WOOTENDOB:[birth year] (34 yo M)Acc No.[id number]:08/18/2024 Patient:?ANDREW WOOTEN :1990???Age:34 Y???Sex:Male Address:[address] [place] [address], [address] * Refills? Start Omeprazole Capsule Delayed Release, 40 MG, Orally, 30, 1 capsule 1/2 to 1 hour before morning meal, Once a day every morning, 30 day(s), Refills=6 * true * Date:? Generated for Pinedai tennille/Nichole/eTransmitting on:?12/17/2024 12:41 PM EDT
[2024-12-17 13:51] LABS: TSH reflex Free T4 4.77 uIU/mL (0.32-4.0)
[2024-12-17 14:58] LABS: Free T4 (Free Thyroxine) 0.78 ng/dL (0.71-1.85)
== END 2024-12-17 11:00 | disposition home or self-care (01) ==
LOC: HO.10HDL 10:59
PROVIDERS: Visit Provider Internal Medicine
DX: E04.1 Nontoxic single thyroid nodule (principal)
CPT/HCPCS: 36415; 84439; 84443

== ENCOUNTER 2025-01-08 12:24 | Outpatient (REF) | payer OTHER, SELFPAY ==
--- OUTSIDE RECORDS SUMMARY | 2025-01-08 12:37 | XMS_ITS ---
Author Organization [facility] Address [address] [place] [address] Care Team Providers Care Stamping Operator Name Role Phone Sherri Anderson Primary Care Provider Unavailab Landon Agee Unavailable [phone] REASON FOR VISIT gerd, epigastric pain, heartburn Problems Problem Type SNOMED Code ICD Code Onset Dates Problem Status W/U Status Risk Notes Problem Gastro-esophagea l reflux disease without esophagitis (824048378) Gastro-esophage al reflux disease without esophagitis (K21.9) Active confirmed Problem Erosive esophagitis (93126658) Erosive esophagitis (K22.10) Active confirmed Problem Chronic gastritis (6655263) Chronic gastritis (K29.50) Active confirmed Encounters Encounter Location Date Provider Diagnosis [facility] Outpatient [address] [place] [address] [phone] 08/17/2024 Landon Sharma Hiatal hernia K44. 9 [...] * ANDREW WOOTENDOB:[birth year] (34 yo M)Acc No.[id number]:08/17/2024 EGD/MAC Patient:?ANDREW WOOTEN Provider:?Landon Sharma MD :1990???Age:34 Y???Sex:Male Cruz e:08/17/2024 Address:[address] [place] [address] BETTY RIGGS [id number] Pcp:Sherri Anderson Subjective: * Chief Complaints: * ???1. Gerd, epigastric pain, heartburn. * Medical History:? Objective: * Vitals:? Assessment: * Assessment: 1.?Hiatal hernia - K44.9 (Pr imary)???2.?Gastro-esophageal reflux disease without esophagitis - K21.9???3.?Erosive esophagitis - K22.10???4.?Chronic gastritis - K29.50??? Plan: * Treatment: * Procedure Codes:?93127 UPPER GI ENDOSCOPY, BIOPSY * * The named appointment provid er may or may not be the originator of this progress note, and it is not deemed complete until electronically signed by the appointment provider. Sign off status: Pending * Provider:?Landon Sharma MD Date:? 025 Generated for Sheila null/Nichole/eTransmitting on:?01/08/2025 12:36 PM EDT
[2025-01-08 13:03] LABS: MANUAL DIFF FLAG NO
[2025-01-08 13:13] LABS: Basophils Percent Auto 0.5 % (0-2); Eosinophils Absolute Auto 0.1 X10*3/uL (0.0-0.4); Eosinophils Percent Auto 1.1 % (0-4); Hematocrit 45.9 % (42.0-52.0); Hemoglobin 16.1 g/dl (14.0-18.0); Imm Gran Abs Auto 0.07 X10*3/uL (0.00-0.03); Imm Gran Pct Auto 1.1 % (0.0-0.4); Lymphocytes Absolute Auto 2.1 X10*3/uL (1.2-4.9); Mean Corpuscular HGB Conc 35.1 g/dl (31.0-36.0); Mean Corpuscular Hemoglobin 29.9 pg (27.0-33.0); Mean Corpuscular Volume 85.2 fL (80.0-98.0); Mean Platelet Volume 9.2 fL (9.4-12.4); Monocytes Absolute Auto 0.2 X10*3/uL (0.1-1.2); Monocytes Percent Auto 3.4 % (2-11); Neutrophils Absolute Auto 4.1 x10*3/uL (2.0-8.3); Neutrophils Percent Auto 61.9 % (45-73); Platelet Count 228 X10*3/uL (160-400); Red Blood Count 5.39 X10*6/uL (4.60-5.80); White Blood Count 6.5 X10*3/uL (4.8-10.8)
[2025-01-08 13:37] LABS: Alanine Aminotransferase 82 U/L (0-40); Albumin Level 4.8 g/dL (3.5-5.0); Alkaline Phosphatase 69 U/L (39-117); Anion Gap 11 (12-20); Aspartate Amino Transferase 42 U/L (5-37); Bilirubin Total 0.4 mg/dL (0.0-1.0); Blood Urea Nitrogen 18 mg/dL (9-16); Calcium 9.1 mg/dL (8.4-10.2); Carbon Dioxide 26 mmol/L (22-29); Chloride 108 mmol/L (96-108); Cholesterol 255 mg/dL (<200); Estimated Glomerular Filt Rate > 60; Glucose Random 109 mg/dL (60-115); HDL Cholesterol 34 mg/dL (>40); Potassium 3.8 mmol/L (3.3-5.1); Sodium 141 mmol/L (135-145); Total Protein 7.5 g/dL (6.5-8.0); Triglycerides 439 mg/dL (<150)
== END 2025-01-08 12:25 | disposition home or self-care (01) ==
LOC: HO.10HDL 12:24
PROVIDERS: Visit Provider Internal Medicine
DX: Z00.01 Encounter for general adult medical examination with abnormal findings (principal); D75.1 Secondary polycythemia; E87.6 Hypokalemia; J33.9 Nasal polyp, unspecified; K20.90 Esophagitis, unspecified without bleeding; R51.9 Headache, unspecified; Z13.6 Encounter for screening for cardiovascular disorders
CPT/HCPCS: 36415; 80053; 80061; 85025

== ENCOUNTER 2025-02-05 13:52 | Outpatient (AMB) | payer OTHER, SELFPAY ==
--- NOTE | 2025-02-05 14:01 | MHC.OFFVIS ---
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 Apparently few months back he did not feel good and had very nonspecific constitutional complaints. He was feeling dizzy extra. In that setting, he was checked out by urgent care and he was told that his blood pressure was on the higher side at 160/90 mm Hg and he also had an incomplete right bundle-branch block on the EKG. Subsequently, Cardiology referral was made. Patient himself has no previous cardiac history whatsoever. There is no history of any congenital heart disease or coronary disease or cardiomyopathy or anything else of concern. He has not had any complaints like exertional chest pains or shortness of breath or syncopal episodes extra. Also, with regard to the blood pressures itself, it seems an isolated high reading but all the other recorded readings are well within the normal range. Today's blood pressure is also normal. It seems he has had excessive alcohol use in the past but nothing recently. Also his diet was not very good in the past, but again he has been walking on it recently. REPLACED BY [facility] Medical History GERD (gastroesophageal reflux disease) Surgical History No pertinent past surgical history Family History (Updated 02/05/25 @ 14:13 by Elsa Cano) Mother No problems noted. Father No problems noted. Social History (Updated 02/05/25 @ 14:14 by Elsa Cano) Alcohol intake: current Alcohol intake frequency: holidays/special occasions only Patient Tobacco Use Status: Former Tobacco user Review of Systems Const All systems reviewed & are unremarkable except as noted in HPI and below Reports as per HPI and Reports no additional complaints Eyes Reports as per HPI and Denies no additional complaints ENT Denies no additional complaints and Reports as per HPI Card Reports as per HPI, Reports no additional complaints, Denies acrocyanosis, Denies chest pain, Denies leg edema, Denies lightheadedness, Denies palpitations and Denies dyspnea Resp Reports as per HPI, Denies no additional complaints and Denies dyspnea GI Reports as per HPI and Denies no additional complaints Reports no additional complaints and Reports as per HPI Musc Reports no additional complaints and Reports as per HPI Skin/Breast Reports system reviewed and no additional complaints, except as documented Neuro Reports no additional complaints and Reports as per HPI Psych Reports no additional complaints and Reports as per HPI Endo Reports no additional complaints, Reports as per HPI and Denies palpitations Edouard/Lymph Reports no additional complaints and Reports as per HPI Aller/Immun Reports no additional complaints and Reports as per HPI Physical Exam Vital Signs: Last Vital Signs Pulse 80 02/05/25 14:05 BP 120/60 02/05/25 14:05 BMI result Body Mass Index 24.3 Const General: comfortable and no acute distress Orientation/consciousness: patient oriented x3 HEENT Other: Unremarkable Head: Yes normal to inspection Neck Neck: Yes normal visual inspection Chest Chest palpation & inspection: normal inspection of the chest Resp Auscultation: clear to auscultation bilaterally Cardio Palpation: normal PMI Heart sounds: S1 normal heart sound present, S2 normal heart sound present, no gallops, no murmurs and no rubs GI Palpation (GI): Soft to palpation Back/Spine/Pelvis Other: unremarkable Skin General skin exam: no rashes or lesions noted Neuro General: patient oriented x3 Extrem General: Yes normal to inspection Psych Mental Status: mental status grossly normal Office Procedures EKG Details: EKG with underlying sinus rhythm at 80/Min; no ischemic changes; [place] [address]-Xvniqfscllpsewfgg, Complete Assessment & Plan Assessment & Plan (1) Elevated blood pressure reading without diagnosis of hypertension: Code(s): R03.0 - Elevated blood-pressure reading, without diagnosis of hypertension Category: Medical Plan Isolated patient reported elevated blood pressure reading but normal readings prior to that and after. No specific management for this and he can monitor blood pressures periodically. There is no evidence of any conduction system disease in the EKG and reassurance provided from that standpoint. With regard to the dyslipidemia, he blames it on poor diet and he will work on it and get follow-up lipids in due course through his own PCP. With regard to history of alcohol excess, none in the last few years. Hopefully, he can abstain completely. LFTs are slightly abnormal. Overall, mainly lifestyle modifications for now and he will follow up with his PCP. If any concerning symptoms, he will contact us immediately. Discussion Notes I discussed with the patient that the elevated blood pressure episode seems isolated. The EKG findings were reviewed, and the suspected right bundle branch block was not confirmed, indicating normal cardiac function. We talked about the importance of maintaining a healthy diet and exercise regimen to support heart health. The patient was advised to continue abstaining from alcohol. Patient was informed and verbally consented to the use of an ambient scribe for clinic note documentation during this visit. Medications: Discontinued hppftbvthf-svdehtsycknmw-edjt 50-325-40 mg Discontinued Reason: Patient no longer taking 1 tab PO Q6H PRN 20 tabs 0RF haeadace ondansetron Discontinued Reason: Patient no longer taking 4 mg PO Q6-8H PRN 7 tabs 0RF nausea and vomiting sumatriptan succinate (Imitrex) do not exceed 2 doses per 24 hrs Discontinued Reason: Patient Refused 50 mg PO Q2H PRN 10 tabs 0RF migraine headache Patient Instructions: - Monitor blood pressure regularly and report any abnormalities. - Maintain a healthy diet and exercise regularly to support heart health. - Continue abstaining from alcohol. Coding Level of Care Code New Pt Level 3 (24495) Diagnoses Elevated blood pressure reading without diagnosis of hypertension R03.0 CPT Codes EKG - CPT: 15062-Uvidstzgllwlwifcu, Complete ([id number])
[2025-02-05 14:05] VITALS: BP 120/60; PULSE 80; BMI 24.3
== END 2025-02-05 14:45 | disposition home or self-care (01) ==
LOC: HO.HCS 13:53
PROVIDERS: PCP Internal Medicine; Visit Provider Internal Medicine
DX: R03.0 Elevated blood-pressure reading, without diagnosis of hypertension (principal)
CPT/HCPCS: 93010; 99203

== ENCOUNTER → 2025-02-05 13:52 | Outpatient (BNVA) | payer OTHER, SELFPAY | PROVIDERS: PCP Internal Medicine; Visit Provider Internal Medicine | DX: R42 Dizziness and giddiness (principal); R03.0 Elevated blood-pressure reading, without diagnosis of hypertension | CPT/HCPCS: 93005 ==

== ENCOUNTER 2025-03-11 09:33 | Outpatient (REF) | payer OTHER, SELFPAY ==
--- OUTSIDE RECORDS SUMMARY | 2024-08-17 04:00 | XMS_ITS ---
Author Organization [facility] Address [address] [place] [address] Care Team Providers Care Maintenance Services Dispatcher Name Role Phone Sherri Anderson Primary Care Provider Unavailab Landon Agee Unavailable [phone] REASON FOR VISIT gerd, epigastric pain, heartburn Problems Problem Type SNOMED Code ICD Code Onset Dates Problem Status W/U Status Risk Notes Problem Gastro-esophagea l reflux disease without esophagitis (156795268) Gastro-esophage al reflux disease without esophagitis (K21.9) Active confirmed Problem Erosive esophagitis (06554531) Erosive esophagitis (K22.10) Active confirmed Problem Chronic gastritis (5432179) Chronic gastritis (K29.50) Active confirmed Encounters Encounter Location Date Provider Diagnosis [facility] [place] Out[place] [address] [place] [address] [id number] 08/17/2024 Landon Sharma Hiatal hernia K44. 9 [...] Notes * SUGARANDREWDOB:[birth year] (35 yo M)Acc No.[id number]:08/17/2024 EGD/MAC Patient: ANDREW ELLISON Provider: Lesli Sharma MD :1990 A ge:34 Y S ex:Male Date:08/17/2024 Address:[address] [place], [place] [address] Pcp:Sherri Anderson Subjective: * Chief Complaints: * 1 . Gerd, epigastric pain, heartburn. * Medical History: Objective: * Vitals: Assessment: * Assessment: 1. H iatal hernia - K44.9 (Primary) 2 . G nikki-esophageal reflux disease without esophagitis - K21.9 3 . E rosive esophagitis - K22.10 4 .?Chronic gastritis - K29.50 Plan: * Treatment: * Procedure Codes: 4 3239 UPPER GI ENDOSCOPY, BIOPSY * * The named appointment provid er may or may not be the originator of this progress note, and it is not deemed complete until electronically signed by the appointment provider. Sign off status: Pending * Provider: Lesli Sharma MD Date: 0 08/17/2024 Generated for Sheila null/Nichole/Angellaitting on: 0 03/11/2025 10:24 AM EDT
--- OUTSIDE RECORDS SUMMARY | 2025-03-11 10:25 | XMS_ITS | Clinical Summary ---
Author Organization [facility] Address [address] [address] Phone Care Team Providers Care Logistic Manager Name Role Phone Deonte Dai MD Unavailable [phone] Pcp, Unknown Primary Care Provider Unavailabl e Allergies Active Allergy Reactions Criticality Noted Date Comments Clindamycin Rash 09/26/2007 had concurrent viral illness, rash probably from clinda, but cannot r/o viral exanthem Medications esomeprazole (NEXIUM) 20 MG capsule Take 20 mg by mouth daily before breakfast. Active atorvastatin (LIPITOR) 10 MG tablet Take 1 tablet (10 mg total) by mouth daily. 90 tablet 01/11/2019 Active Active Problems Problem Noted Date Diagnosed Date Migraine 02/28/2014 Overview (10/05/2014): Migraine Attention deficit hyperactivity disorder 012 Overview (10/05/2014): Attention deficit disorder Gastroesophageal reflux disease 06/30/2012 Overview (10/05/2014): Gastroesophageal reflux disease Immunizations Immunization Administration Dates Next Due DTP 01/25/1994, 0,1989,05/05,1989 [id number] FORMULATION 08/18/2009 Hepatitis A, Unspecified 08/01/2008,01/15/2008 Hepatitis B, unspecified formulation 01/04/1996, 12/22/1992,06/18/1992 Hib, unspecified formulation 04/26/1990 Influenza, Unspecified Formulation 06/30(Deferred: Other - , Ordered By: [id number]),08/01/2008 MMR 01/19/1995,04/26/1990 Meningococcal MPSV4 01/25/2007 Polio, Unspecified Formulation 4,07/25/1990,1989,03/09 Td (adult),2 Lf Tetanus Toxo id, PF, Adsorbed 11/13/2014 Td, unspecified formulation 01/15/2008, 1 Tdap 01/15/2008 Varicella 01/15/2008,01/05/2002 Family History Medical History Relation Comments Hyperlipidemia Father Hypertension Father Relation Status Comments Father Social History Tobacco Use Types Packs/Day Years Used Date Smoking Tobacco: Never Smokeless Tobacco: Never Alcohol Use Standard Drinks/Week Comments Yes 10 (1 standard drink = 0.6 oz pu re alcohol) Education Answer Date Recorded Are you interested in more education? Not on demond e 12/23/2022 Are you concerned about learning? Not on file 12/23/2022 No 12/23/2022 No 12/23/2022 Digital Access Answer Date Recorded No 01/09/2023 No 01/09/2023 No 01/09/2023 Reliable internet access at home? Not on file 01/09/2023 Device with a working camera? Not on file Sex and Gender Information Value Date Recorded Sex Assigned at Not on file Legal Sex Male 6:57 PM EST Gender Identity Not on file Sexual Orientation Not on file Last Filed Vital Signs Vital Sign Reading Time Taken Comments Blood Pressure 116/66 01/04/2019 1:27 PM EDT Pulse 80 01/04/2019 1:27 PM EDT Temperature 36.7 C (98 F) 07/11/2012 11:20 AM EST Respiratory Rate - - Oxygen Saturation 96% 01/04/2019 1:27 PM EDT Inhaled Oxygen Concentration - - Weight 70.8 kg (156 lb) 01/04/2019 1:27 PM EDT Height 170.2 cm (5' 7 ) 01/04/2019 1:27 PM EDT Body Mass Index 24.43 01/04/2019 1:27 PM EDT Plan of Treatment Health Maintenance Due Date Last Done Comments SMOKING STATUS SCREENING (Once After 26 Yrs) 2015 DEPRESSION SCREENING 01/05/2020 01/04/2019 LIPID PANEL 01/05/2024 01/04/2019, 01/04/2019 COVID-19 VACCINE ( season) 2024 11/30/2020, 11/07/2020 Adult Td,Tdap Booster 11/13/2024 11/13/2014 , 01/15/2008, 01/15/2008, Additional history exists HIB VACCINES Completed 04/26/1990 MENINGOCOCCAL VACCINES (ACWY) Aged Out 01/25/2007 No longer eligible based on patient's age to complete this topic HEPATITIS A VACCINES Aged Out 08/01/2008, 01/15/20 08 No longer eligible based on patient's age to complete this topic HEPATITIS C SCREENING Completed 02/28/2014, 002 HIV ONE-TIME SCREENING (18-65 YEARS) Completed 02/28/2014 MENINGOCOCCAL VACCINES (B) Aged Out N o longer eligible based on patient's age to complete this topic PNEUMOCOCCAL VACCINES (0-49 years) Aged Out No longer eligible based on patient's age to complete this topic Medical Devices Not on file Procedures Procedure Name Priority Date/Time Associated Diagnosis Comments LIPID PANEL Routine 01/04/2019 1:46 PM EDT Routine general medical examination at a health care facility HISTORICAL LAB Routine 02/28/2014 12:00 AM EDT from Last 3 Months or Most Recently Relevant to Health Maintenance Results * (ABNORMAL) Lipid panel (01/04/2019 1:46 PM EDT) CHOLESTEROL 274(H) 140 - 200 mg/dL [facility] Comment: Desirable: <200 Borderline: 200-239 High: >239 TRIGLYCERIDES 170(H) 0 - 149 mg/dL [facility] Comment: Normal <150 mg/dL Border-High 150-199 mg/dL High Triglycerides 200-499 mg/dL Very High Triglycerides >=500 mg/dL HDL 46 >40 mg/dL [facility] Comment: Recommendations according to the National Cholesterol Education Program Guidelines: <40 mg/dL: Low (Major risk factor for CHD) >= 60 mg/dL: High (Negative risk factor for CHD) CALCULATED LDL 194(H) 0 - 129 mg/dL [facility] Comment: LDL levels in terms of risk for coronary heart disease: <100 mg/dL: Optimal 100-129 mg/dL: Near or above optimal 130-159 mg/dL: Borderline high 160-189 mg/dL: High >190 mg/dL: Very High NON-HDL CHOLESTEROL 228 mg/dL [facility] CARDIAC RISK RATIO 6.0(H) 0 - 5 N [facility] 01/04/2019 1:46 PM EDT 01/04/2019 10:03 PM EDT us Shelbi Misty Bagley MIXING PLANT DUMPER LAB BLOOD ORDERABLES Fin al Result Performing Organization Address [facility] Co de Phone Number [facility] [address] [phone] * Historical Lab (02/28/2014 12:00 AM EDT) HEPATITIS B SURFACE ANTIGEN Non Reactive NonReactive [facility] Comment:METHOD: CENTAUR CHEM ILUMINESCENCE IMMUNOASSAY (EVAN) HEPATITIS B CORE AB IGM, SERUM Non Reactive NonReactive [facility] HEPATITIS A IGM, SERUM default Non Re[facility] Comment:METHOD: CENTAUR CHEM ILUMINESCENCE IMMUNOASSAY (EVAN) HEPATITIS C w/reflex RIBA Non Reactive NonReactive [facility] Comment:METHOD: CENTAUR CHEM ILUMINESCENCE IMMUNOASSAY (EVAN) 02/28/2014 02/28/2014 6:2 4 PM EDT us Shelbi Misty Bagley M[employer] LAB BLOOD ORDERABLES Fin al Result Performing Organization Address City/[facility]/ZIP Co de Phone Number [facility] [address] [place] [address] from Last 3 Months or Most Recently Relevant to Health Maintenance Insurance [facility] [id number] [place] [id number] [facility] Advance Directives For more information, please contact: [phone] (9AM - 5PM [facility], Tuesday-Tuesday) Documents on File Type Date Recorded Patient Wireless Sales Consultant Expl anation Healthcare Proxy 01/04/2019 [facility] Care Teams Logistic Manager Relationship Specialty Start Date End Date Pcp, Unknown PCP - General 08/17/22 Deonte Dai MD [address] [place] [id number] [email or web address] Internal Medicine 10/19/18 Additional Source Comments The information contained in this document represents components of the legal health record. It is not the complete legal health record.[facility]
[2025-03-11 11:01] LABS: Alanine Aminotransferase 63 U/L (0-40); Albumin Level 4.7 g/dL (3.5-5.0); Alkaline Phosphatase 67 U/L (39-117); Anion Gap 11 (12-20); Aspartate Amino Transferase 29 U/L (5-37); Blood Urea Nitrogen 17 mg/dL (9-16); Calcium 9.2 mg/dL (8.4-10.2); Carbon Dioxide 26 mmol/L (22-29); Chloride 111 mmol/L (96-108); Cholesterol 231 mg/dL (<200); Estimated Glomerular Filt Rate > 60; HDL Cholesterol 36 mg/dL (>40); Potassium 4.1 mmol/L (3.3-5.1); Sodium 144 mmol/L (135-145); Thyroid Stimulating Hormone 4.42 uIU/mL (0.32-4.0); Total Protein 7.0 g/dL (6.5-8.0); Triglycerides 199 mg/dL (<150)
[2025-03-11 11:09] LABS: HBS Num1 348.13 mIU/mL (0-7.99); HBc Num1 0.05 S/CO (0.00-0.79); HBsAGNum1 0.34 S/CO (0.00-0.99); Hepatitis B Surface Antigen Negative (Negative); ~HepC Num1 0.12 S/CO (0.00-0.79); ~Hepatitis B Surface Antibody REACTIVE (Nonreactive); ~Hepatitis C Antibody Nonreactive (Nonreactive)
== END 2025-03-11 09:34 | disposition home or self-care (01) ==
LOC: HO.10HDL 09:33
PROVIDERS: Visit Provider Internal Medicine
DX: E78.1 Pure hyperglyceridemia (principal); G43.909 Migraine, unspecified, not intractable, without status migrainosus; K20.90 Esophagitis, unspecified without bleeding; R74.01 Elevation of levels of liver transaminase levels
CPT/HCPCS: 36415; 80053; 80061; 84443; 86704; 86706; 86803; 87340

== ENCOUNTER 2025-04-25 15:56 | Outpatient (AMB) | payer OTHER, SELFPAY ==
--- OUTSIDE RECORDS SUMMARY | 2024-08-17 04:00 | XMS_ITS ---
Author Organization [facility] Address [address] [place] [address] Care Team Providers Care Explosive Ordnance Disposal Technician Name Role Phone Sherri Anderson Primary Care Provider Unavailab Landon Agee Unavailable [phone] REASON FOR VISIT gerd, epigastric pain, heartburn Problems Problem Type SNOMED Code ICD Code Onset Dates Problem Status W/U Status Risk Notes Problem Gastro-esophagea l reflux disease without esophagitis (642886472) Gastro-esophage al reflux disease without esophagitis (K21.9) Active confirmed Problem Erosive esophagitis (64004625) Erosive esophagitis (K22.10) Active confirmed Problem Chronic gastritis (5783561) Chronic gastritis (K29.50) Active confirmed Encounters Encounter Location Date Provider Diagnosis [facility] [place] [address] [place] [address] [phone] 08/17/2024 Landon Sharma Hiatal hernia K44. 9 [...] Notes * SUGARANDREWDOB:[birth year] (35 yo M)Acc No.[id number]:08/17/2024 EGD/MAC Patient: ANDREW ELLISON Provider: Lesli Sharma MD :1990 A ge:34 Y S ex:Male Date:08/17/2024 Address:[address] [place], [place] [address] Pcp:Sherri Anderson Subjective: * Chief Complaints: * [...] 08/17/2024 Generated for Sheila null/Nichole/Angellaitting on: 0 04/25/2025 06:51 PM EDT
--- NOTE | 2025-04-25 15:59 | MHC.OFFVIS ---
Vital Signs 04/25/25 16:03 Height 5 ft 7 in Weight 154 lb 5.177 oz BMI 24.2 BP 120/80 Blood Pressure Location Rt brachial Position Sitting Pulse 87 Pulse Source Pulse Oximeter Pulse Oximetry (%) 98 Oxygen Delivery Method Room Air Intake Visit Reasons: Thyroid lump Intake Note: NEW Patient presents today to establish care. No acute complaints reported at this time. Parts Sales Manager Required: No Accompanied by: Self / Same As Patient Allergies No Known Allergies Allergy (Verified 04/25/25 16:04) HPI Comments Details: 35 years old male with past medical history of migraine headaches, seen office for evaluation of thyroid nodule incidentally found on imaging. Nodule was discovered by the patient after noticing a bump on the neck following an ER visit for unrelated headaches in October. Symptoms: - Neck mass/swelling - Intermittent hoarseness - Fatigue since August, consistently feeling tired by mid-afternoon - Weight fluctuation between 155-170 lbs, typically stable at 155-160 lbs - Duration and progression of symptoms: Fatigue and weight changes noted since August. Neck mass noted in October. Compressive symptoms: No significant dysphagia, though occasional effortful swallowing noted. Symptoms of thyroid dysfunction: - Fatigue - Weight fluctuation Family history of thyroid cancer, MEN syndromes, or other endocrine tumors: None History of head/neck irradiation: None Previous thyroid function tests or imaging: - TSH mildly elevated (4.77 in December, 4.42 in February) General: Alert, well-nourished, no acute distress. Neck: Supple, there is a fluctuant nodule in the inferolateral left thyroid nodule visible on exam and palpated, soft and nontender Cardiac:Regular rate and rhythm, no murmurs. Peripheral pulses 1+, no edema. Lungs: Clear to auscultation bilaterally. Abdomen: Soft, non-tender, no organomegaly. Extremities: No ulcers, lesions, or edema Neuro: Alert, oriented. Cranial nerves intact. sensation normal to monofilament testing. Skin: Warm, dry, intact. No rashes or ulcers. Labs 4.77 in December, 4.42 in February; free T4 0.78 it may Thyroid ultrasound [facility] Medical History (Updated 04/25/25 @ 16:56 by Dillon Yang MD) GERD (gastroesophageal reflux disease) Surgical History (Updated 04/25/25 @ 16:05 by Zuleica Barry, RMA) History of anterior cruciate ligament surgery Hx of endoscopy Family History Mother No problems noted. Father No problems noted. Social History Alcohol intake: current Alcohol intake frequency: holidays/special occasions only Patient Tobacco Use Status: Former Tobacco user Review of Systems Const Reports as per HPI Physical Exam Vital Signs: Last Vital Signs Pulse 87 04/25/25 16:03 BP 120/80 04/25/25 16:03 Pulse Ox 98 04/25/25 16:03 Oxygen Delivery Method Room Air 04/25/25 16:03 BMI result Body Mass Index 24.2 Assessment & Plan Assessment & Plan (1) Thyroid nodule: Code(s): E04.1 - Nontoxic single thyroid nodule Category: Medical Plan Assessment - Thyroid nodule, location not specified, size not explicitly measured. - Ultrasound risk stratification: Likely low risk, cystic in nature. - Symptoms: Mild compressive, intermittent hoarseness. - Thyroid function: Possible subclinical hypothyroidism. - Risk factors for malignancy: Low Plan A. Further Evaluation - Repeat ultrasound in 3 months. - Consider fine-needle aspiration (FNA) biopsy if indicated by future ultrasound findings. B. Management - Observational approach due to low suspicion of malignancy. - Monitor for symptom progression. C. Patient Education - Explained findings, low risk of malignancy. - Advised monitoring for changes in nodule size or new symptoms. Coding Level of Care Code New Pt Level 4 (62420) Diagnoses Thyroid nodule E04.1
[2025-04-25 16:03] VITALS: BP 120/80; PULSE 87; O2SAT 98; BMI 24.2
--- OUTSIDE RECORDS SUMMARY | 2025-04-25 18:51 | XMS_ITS | Patient Health Record ---
Author Organization [facility] Address [address] [place] [address] Care Team Providers Care Tent Finisher Name Role Phone Sherri Anderson Primary Care Provider Unavailab le Landon Sharma Unavailable [phone] Allergies No Known Allergies Results Component Value Reference Range Notes US abdomen complete Reviewed date:05/16/2024 08:29:33 AM Interpretation: Performing Lab: Notes/Report: [facility] [address] [place] [id number] Ultrasound Report Signed Patient: Jackson Wooten MR#: [id number] 215 : 1990 Acct:[id number] Age/Sex: 34 / M ADM Date: 05/03/24 Loc: HO.US Attending Dr: Landon Sharma MD Ordering Physician: Landon Sharma MD Date of Service: 05/03/24 Procedure(s): US abdomen complete Accession Number(s): [id number] cc: Sherri Anderson MD; Landon Sharma MD [...] 05/08/24 1338 DD/ 0830 TD/TT: 05/03/24 0850 Director Of Home Economics: Pathology (Not yet reviewed by provider) Interpretation: Performing Lab:[facility], [address] [place] [phone] Notes/Report: Reason For Referral No Information Medications Medication [...] Notes Problem Gastro-esophageal reflux disease without esophagitis (166792169) Gastro-esophag eal reflux disease without esophagitis (K21.9) Active confirmed Problem Heartburn (75245743) Heartburn (R12) Active confirmed Problem Epigastric pain (70131740) Abdominal pain, epigastric (R10.13) Active confirmed Problem Erosive esophagitis (35111495) Erosive esophagitis (K22.10) Active confirmed Problem Chronic gastritis (5515926) Chronic gastritis (K29.50) Active confirmed Problem Gastroesophageal reflux disease (disorder) (492641527) Chronic GERD (K21.9) Active confirmed Vital Signs Temperature 97.8 degrees Fahrenheit 04/27/2024 Blood pressure diastolic 00 mm Hg 04/27/2024 Height 5 ft 7 in in 04/27/2024 Blood pressure systolic 000 mm Hg 04/27/2024 Weight 159 lb 8 oz lbs 04/27/2024 BMI 24.98 kg/m2 04/27/2024 Encounters Encounter Location Date Provider Diagnosis [facility] Outpatient [address] [place] [address] [id number] 08/17/2024 Landon Sharma Hiatal hernia K44.9 ; Gastro-esophageal reflux disease without esophagitis K21.9 ; Erosive esophagitis K22.10 and Chronic gastritis K29.50 [facility] [address] [place] [phone] 04/27/2024 Landon Sharma Chronic GERD K21.9 ; Heartburn R12 and Abdominal pain, epigastric R10.13 [facility] [address] [place] [phone] 08/18/2024 Landon Sharma Assessments Encounter Date Diagnosis [...] Insured Coverage Start Date Coverage End Date [facility] [address] [place] [id number] JACKSON WOOTEN Self - patient is the insured Medical (General) History Medical History History ICD Code Denies [place],DM,CVA,Lung disease,renal dise ase GERD/heartburn Surgical History Surgery Date(Month/Year)
--- OUTSIDE RECORDS SUMMARY | 2025-04-25 18:51 | XMS_ITS | Encounter Summary ---
Author Organization [facility] Address [address] [facility] [address] [place] [address] Phone Care Team Providers Care Separator Operator Shellfish Meats Name Role Phone Deonte Dai MD Unavailable [phone] Deonte Dai MD Unavailable [phone] Deonte Dai MD Primary Care Provider + Pcp, Unknown Primary Care Provider Unavailabl e Encounter Details Date Type Department Care Team (Late st Contact Info) Description 01/04/[address] [facility] [address] [place], [place] [id number] Shelbi Bagley, [address] [address] [email or web address] Social History Tobacco Use Types Packs/Day Years Used Date Smoking Tobacco: Never Smokeless Tobacco: Never Alcohol Use Standard Drinks/Week Comments Yes 10 (1 standard drink = 0.6 oz pu re alcohol) Sex and Gender Information Value Date Recorded Sex Assigned at Not on file Legal Sex Male 6:57 PM EST Gender Identity Not on file Sexual Orientation Not on file documented as of this encounter Plan of Treatment Not on file documented as of this encounter Visit Diagnoses Not on filedocumented in this encounter Additional Health Concerns Assessment Noted Time PHQ-2 Depression Total Score: 0 01/05/20 19 1:47 PM EDT documented as of this encounter Care Teams Separator Operator Shellfish Meats Relationship Specialty Start Date End Date Deonte Dai MD [address] [place] [address] PCP - General Internal Medicine 01/04/19 08/16/22 Pcp, Unknown PCP - General 08/17/22 Deonte Dai MD [address] [address] [email or web address] Internal Medicine 10/19/18 Deonte Dai MD [address] [address] [email or web address] Insurance Assigned Provider 11/18/18 07/21/19 documented as of this encounter Additional Source Comments The information contained in this document represents components of the legal health record. It is not the complete legal health record.[facility]
== END 2025-04-25 16:07 | disposition home or self-care (01) ==
LOC: HO.ENCR 15:56
PROVIDERS: PCP Internal Medicine; Visit Provider Student in an Organized Health Care Education/Training Program
DX: E04.1 Nontoxic single thyroid nodule (principal)
CPT/HCPCS: 99203

== ENCOUNTER 2025-07-23 15:48 | Outpatient (AMB) | payer OTHER, SELFPAY ==
--- OUTSIDE RECORDS SUMMARY | 2024-08-17 03:00 | XMS_ITS ---
Author Organization [facility] Address [address] [place] [address] Care Team Providers Care Burlap Man Name Role Phone Sherri Anderson Primary Care Provider Unavailab Landon Agee Unavailable [phone] REASON FOR VISIT gerd, epigastric pain, heartburn Problems Problem Type SNOMED Code ICD Code Onset Dates Problem Status W/U Status Risk Notes Problem Gastro-esophagea l reflux disease without esophagitis (524368351) Gastro-esophage al reflux disease without esophagitis (K21.9) Active confirmed Problem Erosive esophagitis (78174151) Erosive esophagitis (K22.10) Active confirmed Problem Chronic gastritis (1609051) Chronic gastritis (K29.50) Active confirmed Encounters Encounter Location Date Provider Diagnosis [facility] [place] [address] [place] [phone] 08/17/2024 Landon Sharma Hiatal hernia K44. 9 ; Gastro-esophageal reflux disease without esophagitis K21.9 ; Erosive esophagitis K22.10 and Chronic gastritis K29.50 Assessments Encounter Date Diagnosis (ICD Code) Assessment Notes Treatment Notes Treatment Clinical Notes Section Notes 08/17/2024 Hiatal hernia (ICD-10 - K44.9) 08/17/2024 Gastro-esophagea l reflux disease without esophagitis (ICD-10 - K21.9) 08/17/2024 Erosive esophagitis (ICD-10 - K22.10) 08/17/2024 Chronic gastritis (ICD-10 - K29.50) Plan Of Treatment No Information Progress Notes * SUGRAANDREWDOB:[birth year] (35 yo M)Acc No.[id number]:08/17/2024 EGD/MAC Patient: ANDREW ELLISON Provider: Lesli Sharma MD :1990 A ge:34 Y S ex:Male Date:08/17/2024 Address:[address] [place], [place] [address] Pcp:Sherri Anderson Subjective: * Chief Complaints: * G erd, epigastric pain, heartburn Assessment: * Assessment: 1. H iatal hernia - K44.9 (Primary) 2 . G nikki-esophageal reflux disease without esophagitis - K21.9 3 . E rosive esophagitis - K22.10 4 .?Chronic gastritis - K29.50 Plan: * Procedure Codes: 4 3239 UPPER GI ENDOSCOPY, BIOPSY Billing Information: * Procedure Codes: 32312 UPPER GI ENDOSCOPY, BIOPSY. * The named appointment provid er may or may not be the originator of this progress note, and it is not deemed complete until electronically signed by the appointment provider. Sign off status: Pending * Provider: Lesli Sharma MD Date: 0 08/17/2024 Generated for Sheila null/Nichole/Rosioransmitting on: 1 09/23/2024 10:29 PM EST
--- NOTE | 2025-07-23 15:50 | A.OFFVIS_ITS ---
Vital Signs 3 07/23/25 15:51 Height 5 ft 7 in Weight 157 lb 15.876 oz BMI 24.7 BP 102/76 Blood Pressure Location Rt brachial Position Sitting Pulse 88 Pulse Source Pulse Oximeter Pulse Oximetry (%) 99 Oxygen Delivery Method Room Air Intake Visit Reasons: Thyroid lump Intake Note: Patient present today for Thyroid nodule follow up. Youth Minister Required: No Accompanied by: Self / Same As Patient Allergies No Known Allergies Allergy (Verified 07/23/25 15:51) Medication List - Last Reconciled 07/23/25 by Landon Ortega MD amitriptyline 20 mg PO BEDTIME omeprazole 20 mg PO DAILY sumatriptan succinate 50 mg PO Q2H PRN HPI Comments Details: 35 years old male with past medical history of migraine headaches, seen office for evaluation of thyroid nodule incidentally found on imaging. Nodule was discovered by the patient after noticing a bump on the neck following an ER visit for unrelated headaches in October. The patient last saw Dr. Mojica on 04/25/2025 Symptoms: - Neck mass/swelling - Intermittent hoarseness - Fatigue since August, consistently feeling tired by mid-afternoon - Weight fluctuation between 155-170 lbs, typically stable at 155-160 lbs - Duration and progression of symptoms: Fatigue and weight changes noted since August. Neck mass noted in October. Compressive symptoms: No significant dysphagia, though occasional effortful swallowing noted. Symptoms of thyroid dysfunction: - Fatigue - Weight fluctuation Family history of thyroid cancer, MEN syndromes, or other endocrine tumors: None History of head/neck irradiation: None Previous thyroid function tests or imaging: - TSH mildly elevated (4.77 in December, 4.42 in February) [facility] Medical History (Updated 04/25/25 @ 16:56 by Dillon Yang MD) GERD (gastroesophageal reflux disease) Surgical History History of anterior cruciate ligament surgery Hx of endoscopy Family History Mother No problems noted. Father No problems noted. Social History Alcohol intake: current Alcohol intake frequency: holidays/special occasions only Patient Tobacco Use Status: Former Tobacco user Physical Exam Vital Signs: Last Vital Signs Pulse 88 07/23/25 15:51 BP 102/76 07/23/25 15:51 Pulse Ox 99 07/23/25 15:51 Oxygen Delivery Method Room Air 07/23/25 15:51 BMI result Body Mass Index 24.7 Const Other: Thyroid gland is enlarged in size weighs about 50 g. The left lobe of the thyroid seems completely occupied by soft nodule. There was no cervical adenopathy palpated Assessment & Plan Assessment & Plan (1) Thyroid nodule: Code(s): E04.1 - Nontoxic single thyroid nodule Category: Medical Plan: This is a 35-year-old white male with a history of a left cystic nodule. Ultrasound showed a purely cystic nodule He does have a slightly elevated TSH Plan is to send the patient for an FNA to be done by Dr. Mojica in the next few weeks. We will also recheck TSH, free T4 and anti peroxidase antibodies in anticipation of perhaps starting a low dose of levothyroxine which can be done by Dr. Mojica if warranted Orders: Orders 2 Thyroid Stimulating Hormone Today E04.1 - Nontoxic single thyroid nodule Free T4 (Free Thyroxine) Today E04.1 - Nontoxic single thyroid nodule Thyroid Peroxidase Antibodies Today E04.1 - Nontoxic single thyroid nodule Coding Level of Care Code Est Pt Level 3 (62991) Diagnoses Thyroid nodule E04.1
[2025-07-23 15:51] VITALS: BP 102/76; PULSE 88; O2SAT 99; BMI 24.7
--- OUTSIDE RECORDS SUMMARY | 2025-07-23 22:30 | XMS_ITS | Clinical Summary ---
Author Organization [facility] Address [address] [address] Phone Care Team Providers Care Singing Teacher Name Role Phone Deonte Dai MD Unavailable [phone] Pcp, Unknown Primary Care Provider Unavailabl e [...] Administration Dates Next Due DTP 01/25/1994, 0,1989,05/05,1989 [id number] FORMULATION 08/18/2009 Hepatitis A, Unspecified 08/01/2008,01/15/2008 Hepatitis B, unspecified formulation 01/04/1996, 12/22/1992,06/18/1992 Hib, unspecified formulation 04/26/1990 Influenza, Unspecified Formulation 06/30(Deferred: Other - , Ordered By: [id number]),08/01/2008 MMR 01/19/1995,04/26/1990 Meningococcal MPSV4 01/25/2007 Polio, Unspecified [...] 01/05/2020 01/04/2019 LIPID PANEL 01/05/2024 01/04/2019, 01/04/2019 Adult Td,Tdap Booster 11/13/2024 11/13/2014 , 01/15/2008, 01/15/2008, Additional history exists INFLUENZA VACCINE (#1) 2025 08/18/2009, 2007 COVID-19 VACCINE ( season) 2025 11/30/2020, 11/07/2020 HIB VACCINES Completed 04/26/1990 MENINGOCOCCAL VACCINES (ACWY) [...] EDT) CHOLESTEROL 274(H) 140 - 200 mg/dL [facility] Comment: Desirable: <200 Borderline: 200-239 High: >239 TRIGLYCERIDES 170(H) 0 - 149 mg/dL [facility] Comment: Normal <150 mg/dL Border-High 150-199 mg/dL High Triglycerides 200-499 mg/dL Very High Triglycerides >=500 mg/dL HDL 46 >40 mg/dL [facility] Comment: Recommendations according to the National Cholesterol Education Program Guidelines: <40 mg/dL: Low (Major risk factor for CHD) >= 60 mg/dL: High (Negative risk factor for CHD) CALCULATED LDL 194(H) 0 - 129 mg/dL [facility] Comment: LDL levels in terms of risk for coronary heart disease: <100 mg/dL: Optimal 100-129 mg/dL: Near or above optimal 130-159 mg/dL: Borderline high 160-189 mg/dL: High >190 mg/dL: Very High NON-HDL CHOLESTEROL 228 mg/dL [facility] CARDIAC RISK RATIO 6.0(H) 0 - 5 N [facility] 01/04/2019 1:46 PM EDT 01/04/2019 10:03 PM EDT us Shelbi Bagley [facility] BLOOD BKR ORDERABLES Final Result Performing Organization Address City/[facility]/ZIP Co de Phone Number [facility] [address] [place] [phone] * Historical Lab (02/28/2014 12:00 AM EDT) HEPATITIS B SURFACE ANTIGEN Non Reactive NonReactive [facility] Comment:METHOD: CENTAUR CHEM ILUMINESCENCE IMMUNOASSAY (EVAN) HEPATITIS B CORE AB IGM, SERUM Non Reactive NonReactive [facility] HEPATITIS A IGM, SERUM default [facility] Comment:METHOD: CENTAUR CHEM ILUMINESCENCE IMMUNOASSAY (EVAN) HEPATITIS C w/reflex RIBA [facility] Re[facility] Comment:METHOD: CENTAUR CHEM ILUMINESCENCE IMMUNOASSAY (EVAN) 02/28/2014 02/28/2014 6:2 4 PM EDT us Shlebi Bagley [facility] BLOOD ORDERABLES Fin al Result Performing Organization Address City/[facility]/ZIP Co de Phone Number [facility] [address] [phone] from Last 3 Months or Most Recently Relevant to Health Maintenance Advance Directives For more information, please contact: [phone] (9AM - 5PM Lis/[facility], Tuesday-Tuesday) Documents on File Type Date Recorded Patient Forensic Scientist Expl anation Healthcare Proxy 01/04/2019 [facility] Care Teams Singing Teacher Relationship Specialty Start Date End Date Pcp, Unknown PCP - General 08/17/22 Deonte Dai MD [address] [place] [address] [email or web address] Internal Medicine 10/19/18 Additional Source Comments The information contained in this document represents components of the legal health record. It is not the complete legal health record.[facility]
--- OUTSIDE RECORDS SUMMARY | 2025-07-23 22:30 | XMS_ITS | Encounter Summary ---
Author Organization [facility] Address [address] [facility] [address] [place] [address] Phone Care Team Providers Care Software Development Coordinator Name Role Phone Deonte Dai MD Unavailable Deonte Dai MD Unavailable [phone] Deonte Dai MD Primary Care Provider + Pcp, Unknown Primary Care Provider Unavailabl e Encounter Details Date Type Department Care Team (Late st Contact Info) Description 01/04/2019 Transcribe Orders [facility] Main [address] [place], [place] [id number] Shelbi Bagley, [address] [address] [email or web address] Social History Tobacco Use Types Packs/Day Years [...] documented as of this encounter Care Teams Software Development Coordinator Relationship Specialty Start Date End Date Deonte Dai MD [address] [place] [address] PCP - General Internal Medicine 01/04/19 08/16/22 Pcp, Unknown PCP - General 08/17/22 Deonte Dai MD [address] [address] [email or web address] Internal Medicine 10/19/18 Deonte Dai MD [address] [address] [email or web address] Insurance Assigned Provider 11/18/18 07/21/19 documented as of this encounter Additional Source Comments The information contained in this document represents components of the legal health record. It is not the complete legal health record.[facility]
--- OUTSIDE RECORDS SUMMARY | 2025-07-23 22:30 | XMS_ITS | Patient Health Record ---
Author Organization [facility] Address [address] [place] [address] Care Team Providers Care Anode Builder Name Role Phone Sherri Anderson Primary Care Provider Landon Yao Unavailable [phone] Allergies No Known Allergies Results Component Value Reference Range Notes Pathology (Not yet reviewed by provider) Interpretation: Performing Lab:[facility], [address] [place] [id number] Notes/Report: Reason For Referral No Information Medications Medication SIG (Take, Route, Frequency, Duration) Notes Start Date End Date Status Omeprazole 40 MG Capsule Delayed Release 1 capsule 1/2 to 1 hour before morning meal Orally Once a day every morning; Duration: 30 day(s) 08/18/2024 Active Tums 500 MG Tablet Chewable 1 tablet Orally Once a day; Duration: 30 day(s) 04/27/2024 Active Omeprazole 20 MG Capsule Delayed Release 1 Orally Once a day; Duration: 30 day(s) 04/27/2024 Active Omeprazole 20 MG Capsule Delayed Release 1 Orally Once a day; Duration: 90 days 04/27/2024 Active Immunizations Vaccine Route Administration Date Status Comme nts Influenza Unknown 07/05/2023 Administered Social History Tobacco Use: Social History Observation Description Date Details (start date - stop date) Never Smoker NA - NA Social History Drugs/Alcohol: Social Info Question Answer Notes Alcohol Screen Did you have a drink containing alcohol in the past year? Yes How often did you have a drink containing alcohol in the past year? 2 to 3 times a week (3 points) How many drinks did you have on a typical day when you were drinking in the past year? 1 or 2 drinks (0 point) How often did you have 6 or more drinks on one occasion in the past year? 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 [employer] Section Notes: Nonsmoker; occ alcohol 1 to 2 coffees daily Problems Problem Type SNOMED Code ICD Code Onset Dates Problem Status W/U Status Risk Notes Problem Gastro-esophageal reflux disease without esophagitis (251823594) Gastro-esophag eal reflux disease without esophagitis (K21.9) Active confirmed Problem Heartburn (84355952) Heartburn (R12) Active confirmed Problem Epigastric pain (33667986) Abdominal pain, epigastric (R10.13) Active confirmed Problem Erosive esophagitis (50858495) Erosive esophagitis (K22.10) Active confirmed Problem Chronic gastritis (0747615) Chronic gastritis (K29.50) Active confirmed Problem Gastroesophageal reflux disease (disorder) (505775877) Chronic GERD (K21.9) Active confirmed Encounters Encounter Location Date Provider Diagnosis [facility] Out[place] [address] [place], [place] [id number] 08/17/2024 Landon Sharma Hiatal hernia K44.9 ; Gastro-esophageal reflux disease without esophagitis K21.9 ; Erosive esophagitis K22.10 and Chronic gastritis K29.50 [facility] [address] [place] [address] 08/18/2024 Landon Sharma Assessments Encounter Date Diagnosis (ICD Code) Assessment Notes Treatment Notes Treatment Clinical Notes Section Notes 08/17/2024 Gastro-esophagea l reflux disease without esophagitis (ICD-10 - K21.9) 08/17/2024 Hiatal hernia (ICD-10 - K44.9) 08/17/2024 Erosive esophagitis (ICD-10 - K22.10) 08/17/2024 Chronic gastritis (ICD-10 - K29.50) Plan Of Treatment Pending Test Test Name Order Date US ABD 04/27/2024 Pathology 08/17/2024 Future Test Test Name Order Date UPPER GI ENDOSCOPY 04/27/2024 Insurance Providers Payer Name Payer Address Payer Phone Subscriber Number Group Number Insured Name Patient Relationship to Insured Coverage Start Date Coverage End Date [facility] [address] [place], [place] [id number] [phone] [id number] ANDREW WOOTEN Self - patient is the insured Medical (General) History Medical History History ICD Code Denies [place],DM,CVA,Lung disease,renal dise ase GERD/heartburn Surgical History Surgery Date(Month/Year)
== END 2025-07-23 16:20 | disposition home or self-care (01) ==
LOC: HO.ENCR 15:48
PROVIDERS: PCP Internal Medicine; Visit Provider Internal Medicine Endocrinology, Diabetes & Metabolism
DX: E04.1 Nontoxic single thyroid nodule (principal)
CPT/HCPCS: 99213

== ENCOUNTER 2025-07-31 07:58 | Outpatient (REF) | payer OTHER, SELFPAY ==
--- OUTSIDE RECORDS SUMMARY | 2024-08-17 03:00 | XMS_ITS ---
Author Organization [facility] Address [address] [place] [address] Care Team Providers Care Metal Finish Inspector Name Role Phone Sherri Anderson Primary Care Provider Unavailab Landon Agee Unavailable [phone] REASON FOR VISIT gerd, epigastric pain, heartburn Problems Problem Type SNOMED Code ICD Code Onset Dates Problem Status W/U Status Risk Notes Problem Gastro-esophagea l reflux disease without esophagitis (334887337) Gastro-esophage al reflux disease without esophagitis (K21.9) Active confirmed Problem Erosive esophagitis (39652103) Erosive esophagitis (K22.10) Active confirmed Problem Chronic gastritis (7144161) Chronic gastritis (K29.50) Active confirmed Encounters Encounter Location Date Provider Diagnosis [facility] [place] Out[place] [address] [place] [phone] 08/17/2024 Landon Sharma Hiatal hernia K44. 9 [...] Of Treatment No Information Progress Notes * SUGARANDREWDOB:[birth year] (35 yo M)Acc No.[id number]:08/17/2024 EGD/MAC Patient: ANDREW ELLISON Provider: Lesli Sharma MD :1990 A ge:34 Y S ex:Male Date:08/17/2024 Address:[address] [place], [place] [address] Pcp:Sherri Anderson Subjective: * Chief Complaints: * G erd, epigastric pain, heartburn Assessment: * Assessment: 1. H iatal hernia - K44.9 (Primary) 2 . G nikki-esophageal reflux disease without esophagitis - K21.9 3 . E rosive esophagitis - K22.10 4 .?Chronic gastritis - K29.50 Plan: * Procedure Codes: 4 3239 UPPER GI ENDOSCOPY, BIOPSY Billing Information: * Procedure Codes: 06877 UPPER GI ENDOSCOPY, BIOPSY. * The named appointment provid er may or may not be the originator of this progress note, and it is not deemed complete until electronically signed by the appointment provider. Sign off status: Pending * Provider: Lesli Sharma MD Date: 0 08/17/2024 Generated for Sheila null/Nichole/Reginasmitting on: 1 10/01/2024 08:03 AM EST
--- OUTSIDE RECORDS SUMMARY | 2025-07-31 08:03 | XMS_ITS | Patient Health Record ---
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[employer] Section 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: Nonsmoker; occ alcohol 1 to 2 coffees daily Problems Problem Type SNOMED Code ICD Code Onset Dates Problem Status W/U Status Risk Notes Problem Gastro-esophageal reflux disease without esophagitis (320236432) Gastro-esophag eal reflux disease without esophagitis (K21.9) Active confirmed Problem Heartburn (02721801) Heartburn (R12) Active confirmed Problem Epigastric pain (00390117) Abdominal pain, epigastric (R10.13) Active confirmed Problem Erosive esophagitis (54471277) Erosive esophagitis (K22.10) Active confirmed Problem Chronic gastritis (0312603) Chronic gastritis (K29.50) Active confirmed Problem Gastroesophageal reflux disease (disorder) (198828081) Chronic GERD (K21.9) Active confirmed Encounters Encounter Location Date Provider Diagnosis [facility] [place] [address] [place], [place] [phone] 08/17/2024 Landon Sharma Hiatal hernia K44.9 ; Gastro-esophageal reflux disease without esophagitis K21.9 ; Erosive esophagitis K22.10 and Chronic gastritis K29.50 [facility] [address] [place] [address] 08/18/2024 Landon Sharma Assessments Encounter Date Diagnosis [...] Insured Coverage Start Date Coverage End Date [facility] [address] [place], [place] [id number] [phone] [id number] ANDREW WOOTEN Self - patient is the insured Medical (General) History Medical History History ICD Code Denies [place],DM,CVA,Lung disease,renal dise ase GERD/heartburn Surgical History Surgery Date(Month/Year)
--- OUTSIDE RECORDS SUMMARY | 2025-07-31 08:03 | XMS_ITS | Clinical Summary ---
Author Organization [facility] Address [address] [address] Phone Care Team Providers Care Commissary Assistant Name Role Phone Deonte Dai MD Unavailable [phone] Pcp, Unknown Primary Care Provider Unavailabl e [...] Administration Dates Next Due DTP 01/25/1994, 0,1989,05/05,1989 [id number] FORMULATION 08/18/2009 Hepatitis A, Unspecified 08/01/2008,01/15/2008 Hepatitis B, unspecified formulation 01/04/1996, 12/22/1992,06/18/1992 Hib, unspecified formulation 04/26/1990 Influenza, Unspecified Formulation 06/30(Deferred: Other - , Ordered By: [id number]),08/01/2008 MMR 01/19/1995,04/26/1990 Meningococcal MPSV4 01/25/2007 Polio, Unspecified [...] EDT) CHOLESTEROL 274(H) 140 - 200 mg/dL [facility] Comment: Desirable: <200 Borderline: 200-239 High: >239 TRIGLYCERIDES 170(H) 0 - 149 mg/dL [facility] Comment: Normal <150 mg/dL Border-High 150-199 mg/dL High Triglycerides 200-499 mg/dL Very High Triglycerides >=500 mg/dL HDL 46 >40 mg/dL [facility] Comment: Recommendations according to the National Cholesterol Education Program Guidelines: <40 mg/dL: Low (Major risk factor for CHD) >= 60 mg/dL: High (Negative risk factor for CHD) CALCULATED LDL 194(H) 0 - 129 mg/dL [facility] Comment: LDL levels in terms of risk for coronary heart disease: <100 mg/dL: Optimal 100-129 mg/dL: Near or above optimal 130-159 mg/dL: Borderline high 160-189 mg/dL: High >190 mg/dL: Very High NON-HDL CHOLESTEROL 228 mg/dL [facility] CARDIAC RISK RATIO 6.0(H) 0 - 5 [facility] 01/04/2019 1:46 PM EDT 01/04/2019 10:03 PM EDT us Shelbi Bagley [facility] BLOOD BKR ORDERABLES Final Result Performing Organization Address City/[facility] [address]/ZIP Co de Phone Number [facility] [address] [place] [address] [phone] * Historical Lab (02/28/2014 12:00 AM EDT) HEPATITIS B SURFACE ANTIGEN Non Reactive NonReactive [facility] Comment:METHOD: CENTAUR CHEM ILUMINESCENCE IMMUNOASSAY (EVAN) HEPATITIS B CORE AB IGM, SERUM Non Reactive NonReactive [facility] HEPATITIS A IGM, SERUM default Non Reactive [facility] Comment:METHOD: CENTAUR CHEM ILUMINESCENCE IMMUNOASSAY (EVAN) HEPATITIS C w/reflex RIBA Non Reactive [facility] Comment:METHOD: CENTAUR CHEM ILUMINESCENCE IMMUNOASSAY (EVAN) 02/28/2014 02/28/2014 6:2 4 PM EDT us Shelbi Bagley [facility] BLOOD ORDERABLES Fin al Result Performing Organization Address City/[facility] [address]/ZIP Co de Phone Number [facility] [address] [phone] from Last 3 Months or Most Recently Relevant to Health Maintenance Advance Directives For more information, please contact: [phone] (9AM - 5PM Lis/[facility], Tuesday-Tuesday) Documents on File Type Date Recorded Patient Associate Quality Engineer Expl anation Healthcare Proxy 01/04/2019 [facility] Care Teams Commissary Assistant Relationship Specialty Start Date End Date Pcp, Unknown PCP - General 08/17/22 Deonte Dai MD [address] [place] [address] [email or web address] Internal Medicine 10/19/18 Additional Source Comments The information contained in this document represents components of the legal health record. It is not the complete legal health record.[facility]
--- OUTSIDE RECORDS SUMMARY | 2025-07-31 08:03 | XMS_ITS | Encounter Summary ---
Author Organization [facility] Address [address] [employer] [address] [place] [address] Phone Care Team Providers Care Employee Relation Manager Name Role Phone Deonte Dai MD Unavailable [phone] Deonte Dai MD Unavailable [phone] Deonte Dai MD Primary Care Provider + Pcp, Unknown Primary Care Provider Unavailabl e Encounter Details Date Type Department Care Team (Late st Contact Info) Description 01/04/2019 Transcribe Orders [facility] Lab Main [address] [place], [place] [phone] Shelbi Bagley, [address] [address] [email or web address] Social History Tobacco Use Types Packs/Day Years [...] documented as of this encounter Care Teams Employee Relation Manager Relationship Specialty Start Date End Date Deonte Dai MD [address] [place] [phone] PCP - General Internal Medicine 01/04/19 08/16/22 Pcp, Unknown PCP - General 08/17/22 Deonte Dai MD [address] [address] [email or web address] Internal Medicine 10/19/18 Deonte Dai MD [address] [address] [email or web address] Insurance Assigned Provider 11/18/18 07/21/19 documented as of this encounter Additional Source Comments The information contained in this document represents components of the legal health record. It is not the complete legal health record.[facility]
--- NOTE | 2025-07-31 08:42 | PM.PROC ---
Brief Operative Note Date of procedure: 07/31/25 Pre-op diagnosis: Left mid 6.0cm cystic nodule Post-op diagnosis: same Procedure: INDICATION: Left mid 6.0cm cystic nodule; FNA performed to assess for malignancy/evacuation of fluid DESCRIPTION OF PROCEDURE: The indications for FNA (to assess for malignancy) were reviewed with the patient in detail. Potential complications (e.g., bleeding, infection, damage to local structures, absence of clear diagnosis after FNA) were reviewed. Alternatives to FNA including conservative observation or surgery were described. The patient understood and agreed to proceed. This was documented by the signing of the written informed consent form. A time-out was performed to confirm the patient's identity and the site of planned FNA. The nodule of interest was identified using ultrasound (14 MHz linear array probe). The site of FNA was then draped in the usual fashion and carefully cleaned and prepared using alcohol swabs. The skin at the previously-identified site of needle insertion was iced and sprayed with numbing spray. Under ultrasound guidance, 5 passes were performed using a 1.5-inch, 22-gauge needle, and sample was obtained via capillary action. The needle tip was clearly visualized to be within the nodule at the time of sampling for 5 of 5 passes. 64 mls of a bloody, somewhat thick fluid from the thyroid nodule. The patient tolerated the procedure well. There were no immediate complications. A small adhesive bandage was applied, and the patient was advised to take acetaminophen (rather than NSAIDs) for any discomfort and to report any signs of inflammation/infection or marked swelling. IMPRESSION: Technically successful ultrasound-guided fine needle aspiration of Left mid 6.0cm cystic nodule. PLAN: The patient was advised that I will provide follow-up regarding the cytology result and any subsequent plans. Dillon Yang MD Endocrinology Attending Anesthesia: local Surgeon: Dillon Yang Pathology: other (cytology/Afirma) Disposition: same day
== END 2025-07-31 07:59 | disposition home or self-care (01) ==
LOC: HO.US 07:58
PROVIDERS: PCP Internal Medicine; Visit Provider Student in an Organized Health Care Education/Training Program
DX: E04.1 Nontoxic single thyroid nodule (principal)
CPT/HCPCS: 10005; 88173; 88305

== ENCOUNTER → 2025-07-31 07:58 | Outpatient (BNV) | payer OTHER, SELFPAY | PROVIDERS: PCP Internal Medicine; Visit Provider Student in an Organized Health Care Education/Training Program | DX: E04.1 Nontoxic single thyroid nodule (principal) | CPT/HCPCS: 10005 ==

== ENCOUNTER 2025-08-14 12:22 | Outpatient (AMB) | payer OTHER, SELFPAY ==
--- OUTSIDE RECORDS SUMMARY | 2024-08-17 03:00 | XMS_ITS ---
Author Organization [facility] Address [address] [place] [address] Care Team Providers Care Director Of Occupational Health Name Role Phone Sherri Anderson Primary Care Provider Unavailab Landon Agee Unavailable [phone] REASON FOR VISIT gerd, epigastric pain, heartburn Problems Problem Type SNOMED Code ICD Code Onset Dates Problem Status W/U Status Risk Notes Problem Gastro-esophagea l reflux disease without esophagitis (155738265) Gastro-esophage al reflux disease without esophagitis (K21.9) Active confirmed Problem Erosive esophagitis (29694456) Erosive esophagitis (K22.10) Active confirmed Problem Chronic gastritis (0353460) Chronic gastritis (K29.50) Active confirmed Encounters Encounter Location Date Provider Diagnosis [facility] [place] Out[place] [address] [place] [phone] 08/17/2024 Landon Sharma Hiatal hernia K44. 9 [...] Notes * SUGARANDREWDOB:[birth year] (35 yo M)Acc No.[id number]:08/17/2024 EGD/MAC Patient: ANDREW ELLISON Provider: Lesli Sharma MD :1990 A ge:34 Y S ex:Male Date:08/17/2024 Address:[address] [place], [place] [address] Pcp:Sherri Anderson Subjective: * Chief Complaints: * G erd, epigastric pain, heartburn Assessment: * Assessment: 1. H iatal hernia - K44.9 (Primary) 2 . G nikki-esophageal reflux disease without esophagitis - K21.9 3 . E rosive esophagitis - K22.10 4 .?Chronic gastritis - K29.50 Plan: * Procedure Codes: 4 3239 UPPER GI ENDOSCOPY, BIOPSY Billing Information: * Procedure Codes: 42768 UPPER GI ENDOSCOPY, BIOPSY. * The named appointment provid er may or may not be the originator of this progress note, and it is not deemed complete until electronically signed by the appointment provider. Sign off status: Pending * Provider: Lesli Sharma MD Date: 0 08/17/2024 Generated for Sheila null/Nichole/Reginasmitting on: 02:04 PM EST
[2025-08-14 12:27] VITALS: BP 102/76; PULSE 85; O2SAT 99; BMI 26.6
--- NOTE | 2025-08-14 12:27 | MHC.OFFVIS ---
Vital Signs 08/14/25 12:27 Height 5 ft 7 in Weight 169 lb 15.622 oz BMI 26.6 BP 102/76 Blood Pressure Location Lt brachial Position Sitting Pulse 85 Pulse Source Pulse Oximeter Pulse Oximetry (%) 99 Oxygen Delivery Method Room Air Intake Visit Reasons: biopsy follow up Intake Note: Patient present today for biopsy results. Counselor Marriage And Family Required: No Accompanied by: Self / Same As Patient Allergies No Known Allergies Allergy (Verified 08/14/25 12:31) HPI Comments Details: 35 years old male with past medical history of migraine headaches, seen office for evaluation of thyroid nodule incidentally found on imaging. Nodule was discovered by the patient after noticing a bump on the neck following an ER visit for unrelated headaches in October. The patient last saw Dr. Mojica on 04/25/2025 Symptoms: - Neck mass/swelling - Intermittent hoarseness - Fatigue since August, consistently feeling tired by mid-afternoon - Weight fluctuation between 155-170 lbs, typically stable at 155-160 lbs - Duration and progression of symptoms: Fatigue and weight changes noted since August. Neck mass noted in October. Compressive symptoms: No significant dysphagia, though occasional effortful swallowing noted. Symptoms of thyroid dysfunction: - Fatigue - Weight fluctuation Family history of thyroid cancer, MEN syndromes, or other endocrine tumors: None History of head/neck irradiation: None Previous thyroid function tests or imaging: - TSH mildly elevated (4.77 in December, 4.42 in February) Interval history: Patient seen in follow up after FNA of Left mid 6.0cm cystic nodule, expectedly resulting in non-diagnostic as it was mostly fluid. [facility] Medical History (Updated 04/25/25 @ 16:56 by Dillon Yang MD) GERD (gastroesophageal reflux disease) Surgical History (Updated 08/06/25 @ 14:18 by KARMA Garcia) Hx of ultrasound guided needle biopsy History of anterior cruciate ligament surgery Hx of endoscopy Family History Mother No problems noted. Father No problems noted. Social History Alcohol intake: current Alcohol intake frequency: holidays/special occasions only Patient Tobacco Use Status: Former Tobacco user Physical Exam Const Other: Thyroid gland is enlarged in size weighs about 50 g. The left lobe of the thyroid seems completely occupied by soft nodule. There was no cervical adenopathy palpated Assessment & Plan Assessment & Plan (1) Thyroid nodule: Code(s): E04.1 - Nontoxic single thyroid nodule Category: Medical Plan: This is a 35-year-old white male with a history of a left cystic nodule. Ultrasound showed a purely cystic nodule He does have a slightly elevated TSH FNA of Left mid 6.0cm cystic nodule performed on 07/31/25, expectedly resulting in non-diagnostic as it was mostly fluid. We will recommend no further follow up, unless patient experiences compressive symptoms or other concerns. Plan 20 minutes spent reviewing previous records, labs, imaging, education and documenting in the chart Coding Level of Care Code Est Pt Level 3 (61563) Add On Problem Visit Only Diagnoses Thyroid nodule E04.1
--- OUTSIDE RECORDS SUMMARY | 2025-08-14 14:05 | XMS_ITS | Patient Health Record ---
Author Organization [facility] Address [address] [place] [address] Care Team Providers Care Ccie Name Role Phone Sherri Anderson Primary Care Provider Landon Yao Unavailable [phone] Allergies No Known Allergies Results Component Value Reference Range Notes Pathology (Not yet reviewed by provider) Interpretation: Performing Lab: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 Notes: Nonsmoker; occ alcohol 1 to 2 coffees daily Problems Problem Type SNOMED Code ICD Code Onset Dates Problem Status W/U Status Risk Notes Problem Gastro-esophageal reflux disease without esophagitis (004955118) Gastro-esophag eal reflux disease without esophagitis (K21.9) Active confirmed Problem Heartburn (77662381) Heartburn (R12) Active confirmed Problem Epigastric pain (29636567) Abdominal pain, epigastric (R10.13) Active confirmed Problem Erosive esophagitis (32875719) Erosive esophagitis (K22.10) Active confirmed Problem Chronic gastritis (3466807) Chronic gastritis (K29.50) Active confirmed Problem Gastroesophageal reflux disease (disorder) (917927124) Chronic GERD (K21.9) Active confirmed Encounters Encounter Location Date Provider Diagnosis [facility] [place] [facility] [address], [place] [id number] 08/17/2024 Landon Sharma Hiatal hernia K44.9 ; Gastro-esophageal reflux disease without esophagitis K21.9 ; Erosive esophagitis K22.10 and Chronic gastritis K29.50 [facility] [address] [place] [address] 08/18/2024 Landon Sharma Assessments Encounter Date Diagnosis [...] Insured Coverage Start Date Coverage End Date [facility] [address] [place], [place] [phone] [id number] ANDREW WOOTEN Self - patient is the insured Medical (General) History Medical History History ICD Code Denies MT,DM,CVA,Lung disease,renal dise ase GERD/heartburn Surgical History Surgery Date(Month/Year)
== END 2025-08-14 12:36 | disposition home or self-care (01) ==
LOC: HO.ENCR 12:22
PROVIDERS: PCP Internal Medicine; Visit Provider Student in an Organized Health Care Education/Training Program
DX: E04.1 Nontoxic single thyroid nodule (principal)
CPT/HCPCS: 99213; G2211